=== PATIENT | female | born 1945 | race Caucasian/White ===

== ENCOUNTER → 2016-08-16 | Outpatient (CLI) | payer OTHER ==
[~2016-08-16] MED LIST: ALBUAER19 INH; ASCA500 PO; ATV/1 PO; CALCTAB5 PO; CHOL100027 PO; CYAN3INJ IM; DIPH25TA24 PO; HYDR-5688 PO; POLY150C12 PO; POTASSIUM CHLO PO; SIMV20TA2 PO; TRAM-10 PO; VENL150T33 PO; WARF5TAB90 PO
--- NOTE | 2016-08-17 07:56 | MAMMOGRAPHY REPORT ---
BILATERAL DIGITAL SCREENING MAMMOGRAM WITH CAD: 08/16/2016 CLINICAL HISTORY: Routine screening. Patient has no complaints. TECHNIQUE: Current study was also evaluated with a Computer Aided Detection (CAD) system. Bilatera l CC and MLO views were obtained. COMPARISON: Comparison is made to exams dated: 06/03/2015 mammogram, 01/30/2013 mammogram, 12/13/2009 m ammogram - [facility], 12/12/2006, and 02/16/2004 mammogram - [facility] enter. BREAST COMPOSITION: There are scattered areas of fibroglandular density in both breasts. FINDINGS: A 10 mm focal asymmetry is seen within the left inferior breast at approximately 6:00, for which spot compression tomosynthesis views and possible breast ultrasound are recommended for furth er evaluation. The remainder of both breasts are stable compared to prior exams, without suspicious masses, calcifi cations, or areas of architectural distortion noted. IMPRESSION: ACR BI-RADS CATEGORY 0: INCOMPLETE EVALUATION: NEED ADDITIONAL IMAGING EVALUATION Left breast focal asymmetry, for which additional imaging evaluation is recommended. The patient w ill be called to schedule an appointment. Approximately 10% of breast cancers are not detected with mammography. A negative mammographic repor t should not delay biopsy if a clinically suggestive mass is present. Sanjuana Christina M.D. /:08/16/2016 17:02:02 Single Corner Cutter: Liliane OLIVEIRA)([place]), [facility] letter sent: Addl Imaging 0 BI-RADS Code: ACR BI-RADS Category 0: Incomplete Evaluation: Need Additional Imaging Evaluation
== END | disposition home or self-care (01) ==
LOC: C.MAMM 13:51
PROVIDERS: ATTEND Family Medicine
DX: Z12.31 Encounter for screening mammogram for malignant neoplasm of breast (principal); N64.89 Other specified disorders of breast

== ENCOUNTER → 2016-08-23 | Outpatient (CLI) | payer OTHER ==
--- NOTE | 2016-08-23 12:48 | MAMMOGRAPHY REPORT ---
UNILATERAL LEFT DIGITAL DIAGNOSTIC MAMMOGRAM TOMOSYNTHESIS AND TARGETED LEFT ULTRASOUND: 08/23/2016 CLINICAL HISTORY: Callback from screening mammogram for left breast asymmetry. TECHNIQUE: Breast tomosynthesis in addition to standard 2D mammography was performed. Spot nichole torin left CC and MLO 2-D and tomosynthesis images were obtained. COMPARISON: Comparison is made to exams dated: 08/16/2016 mammogram, 06/03/2015 mammogram, 01/30/2013 m ammogram, 12/13/2009 mammogram - [facility], 12/12/2006, and 02/16/2004 mammogram - [facility]. BREAST COMPOSITION: There are scattered areas of fibroglandular density in the left breast. FINDINGS: The previously described focal asymmetry in the left 6:00 breast effaces to a baseline keira earance on the additional spot compression views, with appearance of this region similar to prior ex ams including the 2009 exam. No suspicious mass or architectural distortion is noted in this region on the additional views. Targeted ultrasound was performed of the left 6:00 breast in the region of the mammographic asymmetr y. No suspicious masses or other suspicious sonographic abnormality is evident. An oval circumscri bed isoechoic 4 x 6 mm mass is seen within the left breast at 6:00, 3 cm from the nipple, which on r eal-time imaging has the appearance of a normal fat lobule. IMPRESSION: ACR BI-RADS CATEGORY 2: BENIGN, TARGETED ULTRASOUND ACR BI-RADS CATEGORY 2: BENIGN The left breast asymmetry effaces to a baseline appearance on the additional views, without correspo nding suspicious sonographic abnormality evident. The asymmetry is benign and felt to represent nor mal fibroglandular tissue. There is no mammographic or targeted sonographic evidence of malignancy. A 1 year screening mammogram is recommended. The patient has been verbally notified of the results . Approximately 10% of breast cancers are not detected with mammography. A negative mammographic repor t should not delay biopsy if a clinically suggestive mass is present. Sanjuana Christina M.D. /:08/23/2016 11:36:25 Golf Ball Molder: Galina Garcia, [facility] letter sent: Normal 1/2 BI-RADS Code: ACR BI-RADS Category 2: Benign Ultrasound BI-RADS: ACR BI-RADS Category 2: Benign
== END | disposition home or self-care (01) ==
LOC: C.MAMM 11:02
PROVIDERS: ATTEND Family Medicine
DX: Z12.31 Encounter for screening mammogram for malignant neoplasm of breast (principal); N64.89 Other specified disorders of breast

== ENCOUNTER → 2017-12-18 | Outpatient (CLI) | payer OTHER ==
[~2017-12-18] MED LIST changes: -HYDR-5688 PO
--- NOTE | 2017-12-19 13:38 | MAMMOGRAPHY REPORT ---
BILATERAL DIGITAL SCREENING MAMMOGRAM TOMOSYNTHESIS WITH CAD: 12/18/2017 CLINICAL HISTORY: Routine screening. Patient has no complaints. TECHNIQUE: The study was acquired using full field digital technology and interpreted from soft copy. Breast tomosynthesis in addition to standard 2D mammography was performed. Current study was also ev aluated with a Computer Aided Detection (CAD) system. COMPARISON: Comparison is made to exams dated: 08/23/2016 mammogram, 08/16/2016 mammogram, 06/03/2015 ma mmogram, 01/30/2013 mammogram, 12/13/2009 mammogram - [facility], and 12/12/2006. BREAST COMPOSITION: There are scattered areas of fibroglandular density in both breasts. FINDINGS: There are possible areas of architectural distortion in the lateral, middle one third of th e right breast on the CC tomosynthesis slice 15/37, and in the anterior left breast along the posteri or nipple line on CC tomosynthesis slice 9/33, for which additional spot compression tomosynthesis vi ews and possible ultrasound are recommended for further characterization. No suspicious masses, asymmetries or suspicious calcifications are seen bilaterally. IMPRESSION: ACR BI-RADS CATEGORY 0: INCOMPLETE EVALUATION: NEED ADDITIONAL IMAGING EVALUATION The possible areas of architectural distortion in the lateral right breast and left breast along the posterior nipple line on the CC view need additional imaging evaluation. The patient will be called to schedule an appointment. Some breast cancers are not detected with mammography. A negative mammographic report should not lachelle y biopsy if a clinically suggestive mass is present. Kay Thomas M.D. ay/:12/18/2017 16:12:24 Materials Associate: RT Rasheed(Emmy)(M), [facility] letter sent: Addl Imaging 0 BI-RADS Code: ACR BI-RADS Category 0: Incomplete Evaluation: Need Additional Imaging Evaluation
== END | disposition home or self-care (01) ==
LOC: C.MAMM 13:40
PROVIDERS: ATTEND Family Medicine
DX: Z12.31 Encounter for screening mammogram for malignant neoplasm of breast (principal); N64.89 Other specified disorders of breast

== ENCOUNTER → 2018-01-04 | Outpatient (CLI) | payer OTHER ==
--- NOTE | 2018-01-04 14:31 | MAMMOGRAPHY REPORT ---
BILATERAL DIGITAL DIAGNOSTIC MAMMOGRAM TOMOSYNTHESIS AND TARGETED LEFT ULTRASOUND: 01/04/2018 CLINICAL HISTORY: Callback from screening mammogram for possible bilateral architectural distortion. TECHNIQUE: Breast tomosynthesis in addition to standard 2D mammography was performed. Spot compressi on bilateral CC 2D and tomosynthesis images were obtained. COMPARISON: Comparison is made to exams dated: 12/18/2017 mammogram, 08/23/2016 mammogram, 08/16/2016 amy mogram, 06/03/2015 mammogram, 08/23/2016 ultrasound, and 12/13/2009 mammogram - [facility]. BREAST COMPOSITION: There are scattered areas of fibroglandular density in both breasts. FINDINGS: The previously described possible area of architectural distortion seen within the right lateral chris st on the cc view does not persist on the additional spot compression views. Normal fibroglandular t issue is seen within this region, without evidence of a mass or other suspicious sonographic abnormal ity. Small nodular asymmetry in the right lateral breast on the cc view is stable compared to multip le prior exams including the 2012 exam. The previously described possible area of architectural distortion seen within the left anterior chris st on the cc view does not clearly persist on the additional views, however, there is dense tissue in this region and therefore ultrasound was performed for further evaluation. A lobulated asymmetry se en in the left breast on the cc view more posteriorly appears stable compared to multiple prior exams including the 2013 exam. Targeted ultrasound was performed of the left breast including 12:00, 6:00, and subareolar breast to evaluate the area of possible distortion. No suspicious masses or other suspicious sonographic abnor malities are evident. IMPRESSION: ACR BI-RADS CATEGORY 2: BENIGN, ULTRASOUND ACR BI-RADS CATEGORY 2: BENIGN No persistent architectural distortion seen within either breast on the additional spot compression v iews. Findings are benign and most compatible with normal fibroglandular tissue. There is no mammog raphic or sonographic evidence of malignancy. A 1 year screening mammogram is recommended.(01/05/2019 ) The patient has been verbally notified of the results. Some breast cancers are not detected with mammography. A negative mammographic report should not lachelle y biopsy if a clinically suggestive mass is present. Sanjuana Christina M.D. /:01/04/2018 12:25:42 Fabric Awning Repairer: RT Liyah(R)(M), [facility] letter sent: Normal 05/15 OVERALL STUDY BIRADS: 2 Benign
== END | disposition home or self-care (01) ==
LOC: C.MAMM 11:03
PROVIDERS: ATTEND Family Medicine
DX: R92.8 Other abnormal and inconclusive findings on diagnostic imaging of breast (principal)

== ENCOUNTER 2019-11-14 17:31 | Inpatient (IN) ==
[2019-11-14] MEDS ORDERED: SODIUM CHLORIDE 0.9% 250 ML IV PRN (17:54)
[2019-11-14] MEDS ORDERED: PANTOprazole 40 MG in SYRINGE 0 ML IV ONE (18:11)
--- NOTE | 2019-11-14 18:14 | Emergency Department Note ---
Impression & Plan Anemia, Acute GI bleeding, Heart murmur ED Provider Note NAME: TEDDY GODWIN AGE: 74 SEX: F : 1945 ARRIVES VIA: Walk-In INFORMANT: Patient, ED PROVIDER(S): Soren Mix DO CHIEF COMPLAINT: Edema HPI: The patient is a 74-year-old female who presented to the emergency department with her family member for an evaluation of lower extremity edema. The patient is noticed lower extremity edema over the last few months. Things have worsened over the last few weeks. She had a follow-up appointment with her primary preschool assistant today and was found to have a very low hemoglobin. She states her hemoglobin was around 5. She does have a history of chronic anemia and does receive iron infusions twice a year and is also received transfusions of blood in the past. She denies having any chest pain but does complain of dy spnea on exertion as well as generalized weakness with exertion. She denies having any black or bloody stools. She had no rectal exam prior to arrival. She has not seen her family doctor for these complaints. She denies having any recent falls or abdominal pain. She does complain of approximately 40 pound weight gain. The patient has a history of warfarin use because of a mechanical valve transplant. ROS: See above HPI for pertinent positives & negatives. A total of 10 systems reviewed and were otherwise negative. PAST MEDICAL HISTORY: See Below PAST SURGICAL HISTORY: See Below FAMILY HISTORY: See Below SOCIAL HISTORY: See Below HOME MEDICATIONS: See Below ALLERGIES: See Below VITALS: See Below PHYSICAL EXAMINATION: GENERAL: Patient is awake alert in no acute distress patient is resting comfortably and showing no signs of anxiety EYES: The conjunctivae are pale. The pupils are round and reactive. EARS, NOSE, MOUTH AND THROAT: The nose is without any evidence of any deformity. Mucous membranes are moist. NECK: The neck is nontender and supple. RESPIRATORY: Normal respiratory effort is noted there is no evidence of wheezing rhonchi or rales CARDIOVASCULAR: Regular rate and rhythm was noted to auscultation. Metallic click was noted to auscultation as well as a systolic murmur. GASTROINTESTINAL: The abdomen is soft. Abdomen is nontender. Brown stool was noted on rectal exam which was heme positive. MUSCULOSKELETAL/EXTREMITIES: There is no evidence of gross deformity full range of motion is noted in the hips and shoulders. SKIN: Skin was pale and dry. There is pedal edema bilaterally. NEUROLOGIC: Patient is awake alert and oriented x3. MEDICAL DECISION MAKING: The patient is a 74-year-old female who presented to the emergency department for an evaluation of lower extremity edema. The patient has been having symptoms for approximately 1 month. She is also noticed significant weight gai n. She went to see her primary preschool assistant for the symptoms and had outpatient laboratory studies done. She was sent to the emergency department because of a low hemoglobin. Rectal exam did reveal heme positive stool. It was not melanotic. The patient had type and cross for 2 units of blood. I discussed the patient's laboratory and radiographic studies with her. I also discussed her condition with her family member who presented to the emergency department with her. At this time the patient is receiving blood transfusion. The [facility] hospitalist group was notified about this patient's condition and they will evaluate the patient in the emergency department for further management and disposition. Triage Nursing notes reviewed. Prior medical records reviewed Vital Signs: reviewed and remarkable for low blood pressure Differential diagnosis: Infection, dehydration, metabolic abnormality, hypo/hyperglycemia, electrolyte disturbance, anemia, hypoxia, cardiac sources, intracerebral event, toxicologic, neurologic, as well as other pathologies. ER treatment provided: See below Diagnostics interpreted by me: ECG: EKG was obtained in the emergency department. My interpretation is normal sinus rhythm at 79 bpm. There is a right bundle branch block pattern noted. No PVCs were noted. This was compared to a tracing from November 03, 2018. Right bundle branch block pattern was noted on the previous tracing. Cardiac Monitoring: An order was placed for continuous cardiac monitoring. The monitor shows a rate of 85 with sinus rhythm. Laboratory studies: As stated above and show below. Imaging studies: See below Consultation(s): 2000: I discussed this case with Dr. Stuart. He is agreed to evaluate the patient in the emergency department for further management and disposition. ED COURSE: Procedures: none Critical Care: I have personally spent greater than 45 minutes of critical care time in the direct management of this patient. This includes bedside care, interpretation of diagnostic studies, and testing, discussion with consultants, patient, and family members, and other required patient management activities. This 45 minutes is in excess of all separately billable procedures. Past Med/Surg History Medical History Anemia Anxiety Asthma ENVIRONMENTALLY INDUCED/NO INHALER USE RECENTLY Depression Hearing deficit Hyperlipidemia Hypertension Migraine Osteoarthritis Ovarian cyst Spinal stenosis Stomach ulcer "HILL [place] 2 PROCEDURE" White coat syndrome with hypertension Surgical History History of adenoidectomy History of bilateral tubal ligation History of bowel resection History of cardiac cath History of cataract surgery History of colonoscopy History of esophagogastroduodenoscopy (EGD) History of heart valve replacement AORTIC VALVE REPLACEMENT [facility] History of tonsillectomy History of tooth extraction History of total abdominal hysterectomy and bilateral salpingo-oophorectomy Family History Mother Family history of diabetes mellitus Social History Preferred Language: German Communication Ability: Effective Visual Impairment: No Limitations Hearing Ability: Hard of Hearing Mailroom Coordinator Required: No Beliefs That Will Affect Care: None Current Living Situation: Alone Other Information That Helps Us Care for You: No Feels Safe at Home: Yes Safety Concerns: Feels Safe At This Time Smoking Status: Former smoker Second Hand Exposure: No ; Hx Alcohol Use: Yes Hx Substance Use: No Allergies Allergies Allergy/AdvReac Type Severity Reaction Status Date / Time heparin Allergy Severe developed Verified 11/14/19 18:32 antibody to heparin ferrous sulfate AdvReac Intermediate Gastrointestinal Verified 11/14/19 18:37 Upset adhesive tape AdvReac Mild skin Verified 11/14/19 18:32 sensitive Home Meds Home Medications Medication Instructions Recorded Confirmed albuterol sulfate 1 puff INHALATION Q6H PRN 02/01/18 11/14/19 ascorbic acid (vitamin C) [Vitamin 500 mg PO QAM 02/01/18 11/14/19 C] bupropion HCl [Wellbutrin XL] 150 mg PO QAM 02/01/18 11/14/19 diphenhydramine HCl [Benadryl] 25 mg PO HS PRN 02/01/18 11/14/19 lorazepam 1 mg PO HS 02/01/18 11/14/19 simvastatin 20 mg PO HS 02/01/18 11/14/19 tramadol 50 mg PO Q6H PRN 02/01/18 11/14/19 venlafaxine [Effexor XR] 150 mg PO QAM 02/01/18 11/14/19 cholecalciferol (vitamin D3) 0 unit PO QAM 10/31/18 11/14/19 [Vitamin D3] warfarin 1 mg PO WK 10/31/18 11/14/19 warfarin 3 mg PO [id number] 10/31/18 11/14/19 calcium carbonate [Calcium 600] 600 mg PO DAILY 11/14/19 11/14/19 cyanocobalamin (vitamin B-12) 1,000 mcg IM .[id number] 11/14/19 11/14/19 Results & Data (ED) Vital Signs Vital Signs - 24 hr 11/14/19 17:38 11/14/19 18:30 11/14/19 18:33 Temperature 36.8 C Temperature Source Oral Pulse Rate 89 83 Pulse Rate from SpO2 Sensor 85 Respiratory Rate 18 22 Blood Pressure 116/47 L 146/51 H Blood Pressure Mean 70 67 Pulse Oximetry 98 100 100 Oxygen Delivery Method Room Air Room Air Sepsis Recent Fever Within 48 Hours No Sepsis New/Unexplained Change in Mental Status No Sepsis Action Taken by Nursing No Action Required 11/14/19 19:15 11/14/19 19:30 11/14/19 20:30 Temperature Temperature Source Pulse Rate 81 79 80 Pulse Rate from SpO2 Sensor 81 79 79 Respiratory Rate 19 15 21 Blood Pressure 114/44 L 115/58 L 116/43 L Blood Pressure Mean 64 69 67 Pulse Oximetry 97 97 95 Oxygen Delivery Method Room Air Room Air Room Air Sepsis Recent Fever Within 48 Hours Sepsis New/Unexplained Change in Mental Status Sepsis Action Taken by Group Home Medications Current Medication List: was personally reviewed by me Laboratory Data Attestation: I reviewed the patient's lab results. Result diagrams: 11/14/19 18:05 11/14/19 18:05 Lab Results 11/14/19 11/14/19 11/14/19 Range/Units 18:05 18:05 18:05 WBC 11.44 H (4.8-10.8) K/uL RBC 2.48 L (4.2-5.4) M/uL Hgb 5.6 L* (12.0-16.0) g/dL Hct 20.4 L* (37-47) % MCV 82.3 (80-100) fL MCH 22.6 L (25-34) pg MCHC 27.5 L (32-36) g/dL RDW Std Deviation 63.5 H (36.4-46.3) fL RDW Coeff of Kristy 22.8 H (11.5-14.5) % Plt Count 391 (130-400) K/uL MPV 10.1 (7.4-10.4) fL Immature Gran % (Auto) 0.2 % Neut % (Auto) 69.8 % Lymph % (Auto) 13.1 % [place] % (Auto) 16.0 % Eos % (Auto) 0.7 % Baso % (Auto) 0.2 % Neut # (Auto) 7.99 H (1.4-6.5) K/uL Lymph # (Auto) 1.50 (1.2-3.4) K/uL [place] # (Auto) 1.83 H (0.11-0.59) K/uL Eos # (Auto) 0.08 (0-0.5) K/uL Baso # (Auto) 0.02 (0-0.2) K/uL Immature Gran # (Auto) 0.02 (0.00-0.02) K/uL Hypochromasia Present Anisocytosis Present PT 23.4 H (9.0-12.0) Seconds INR 2.3 H (0.9-1.1) APTT 40.6 H (21.0-31.0) Seconds PTT Ratio 1.5 Sodium 138 (136-145) mmol/L Potassium 3.4 L (3.5-5.1) mmol/L Chloride 110 H (98-107) mmol/L Carbon Dioxide 24 (21-32) mmol/L Anion Gap 4.0 (3-11) BUN 17 (7-18) mg/dl Creatinine 1.13 (0.6-1.2) mg/dl Est Cr Clr Drug Dosing 40.8 ml/min Est GFR ( Amer) 55.1 Est GFR (Non-Af Amer) 47.5 BUN/Creatinine Ratio 14.9 (10-20) Glucose 92 (70-99) mg/dl Calcium 8.4 L (8.5-10.1) mg/dl Total Bilirubin 0.3 (0.2-1) mg/dl AST 18 (15-37) U/L ALT 158 H (12-78) U/L Alkaline Phosphatase 107 (45-117) U/L Troponin I < 0.015 (0-0.045) ng/ml Total Protein 6.6 (6.4-8.2) gm/dl Albumin 3.0 L (3.4-5.0) gm/dl Globulin 3.6 (2.5-4.0) gm/dl Albumin/Globulin Ratio 0.8 L (0.9-2) Lipase 167 (73-393) U/L Blood Type Antibody Screen Antibody Identification Crossmatch 11/14/19 Range/Units 18:05 WBC (4.8-10.8) K/uL RBC (4.2-5.4) M/uL Hgb (12.0-16.0) g/dL Hct (37-47) % MCV (80-100) fL MCH (25-34) pg MCHC (32-36) g/dL RDW Std Deviation (36.4-46.3) fL RDW Coeff of Kristy (11.5-14.5) % Plt Count (130-400) K/uL MPV (7.4-10.4) fL Immature Gran % (Auto) % Neut % (Auto) % Lymph % (Auto) % [place] % (Auto) % Eos % (Auto) % Baso % (Auto) % Neut # (Auto) (1.4-6.5) K/uL Lymph # (Auto) (1.2-3.4) K/uL [place] # (Auto) (0.11-0.59) K/uL Eos # (Auto) (0-0.5) K/uL Baso # (Auto) (0-0.2) K/uL Immature Gran # (Auto) (0.00-0.02) K/uL Hypochromasia Anisocytosis PT (9.0-12.0) Seconds INR (0.9-1.1) APTT (21.0-31.0) Seconds PTT Ratio Sodium (136-145) mmol/L Potassium (3.5-5.1) mmol/L Chloride (98-107) mmol/L Carbon Dioxide (21-32) mmol/L Anion Gap (3-11) BUN (7-18) mg/dl Creatinine (0.6-1.2) mg/dl Est Cr Clr Drug Dosing ml/min Est GFR ( Amer) Est GFR (Non-Af Amer) BUN/Creatinine Ratio (10-20) Glucose (70-99) mg/dl Calcium (8.5-10.1) mg/dl Total Bilirubin (0.2-1) mg/dl AST (15-37) U/L ALT (12-78) U/L Alkaline Phosphatase (45-117) U/L Troponin I (0-0.045) ng/ml Total Protein (6.4-8.2) gm/dl Albumin (3.4-5.0) gm/dl Globulin (2.5-4.0) gm/dl Albumin/Globulin Ratio (0.9-2) Lipase (73-393) U/L Blood Type B Negative Antibody Screen POSITIVE A Antibody Identification Anti-D Crossmatch See Detail Administered Medications Pantoprazole Sodium 40 mg/ (Dextrose) 100 mls @ 20 mls/hr IV Q5H ANTONINA Stop: 12/14/19 22:30 Last Admin: 11/14/19 23:14 Dose: 8 mg/hr, 20 mls/hr Documented by: [id number] Simvastatin (Zocor) 20 mg PO HS ANTONINA Stop: 12/14/19 22:30 Last Admin: 11/14/19 23:13 Dose: 20 mg Documented by: [id number] Discontinued Medications Pantoprazole Sodium 40 mg/ (Syringe) 10 mls @ 5 mls/min IV NOW ONE Stop: 11/14/19 18:12 Last Admin: 11/14/19 19:12 Dose: 5 mls/min Documented by: [id number] Phytonadione 10 mg/ Sodium (Chloride) 51 mls @ 102 mls/hr IV ONE STA Stop: 11/14/19 21:40 Last Admin: 11/14/19 21:41 Dose: Not Given Documented by: [id number] Imaging Data Radiologist's Impression: SINGLE VIEW CHEST CLINICAL HISTORY: Atypical chest pain. FINDINGS: An AP, portable, upright chest radiograph is compared to study dated 10/31/2018. Correlation is made with chest CT dated 07/21/2009. The examination is degraded by portable technique and patient rotation. The patient is status post midline sternotomy and cardiac valve surgery. The heart is enlarged noting atherosclerotic calcification of the thoracic aorta. The pulmonary vasculature is noncongested. Chronic interstitial thickening is similar to previous. There is mild bibasilar scarring/atelectasis. No airspace consolidation or pleural effusion is identified. No pneumothorax is seen. The skeletal structures are osteopenic. The bony thorax is grossly intact. Surgical clips project over the right upper chest. Suture material and postoperative change is noted in the u pper abdomen. IMPRESSION: Cardiomegaly with no acute cardiopulmonary abnormality. ACT 112: Negative or not required by law. Electronically signed by: Olu Killian M.D. 11/14/2019 6:33 PM Dictated: 11/14/19 183 Transcribed: 11/14/19 183 Blood Pressure Blood Pressure Findings: Low blood pressure Discharge Plan Visit Data *Final* Discharge Date/Time: 11/14/19 22:10 Chief Complaint: Edema To Extremity Stated Complaint: ANEMIA,LOWER EXTREMITY EDEMA ED Provider: Soren Mix Discharge Problem: Anemia, Acute GI bleeding, Heart murmur Patient Disposition: Admitted As Inpatient Condition: Good Discharge Instructions Interventions: ED Discharge Assessment Last Done: 11/14/19 22:10 Discharge Problem: Anemia Qualifiers: Anemia type: unspecified type Qualified Code(s): D64.9 - Anemia, unspecified
[2019-11-14 18:25] LABS: INR 2.3 (0.9-1.1); Partial Thromboplastin Ratio 1.5; Partial Thromboplastin Time 40.6 Seconds (21.0-31.0); Prothrombin Time 23.4 Seconds (9.0-12.0)
[2019-11-14 18:31] LABS: Alanine Aminotransferase 158 U/L (12-78); Aspartate Aminotransferase 18 U/L (15-37); BUN Creatinine Ratio 14.9 (10-20); Blood Urea Nitrogen 17 mg/dl (7-18); Calcium 8.4 mg/dl (8.5-10.1); Carbon Dioxide 24 mmol/L (21-32); Chloride 110 mmol/L (98-107); Creatinine Clr Calc Pharmacy 40.8 ml/min; Est GFR (African American) 55.1; Est GFR (Non-African American) 47.5; Glucose 92 mg/dl (70-99); Lipase 167 U/L (73-393); Potassium 3.4 mmol/L (3.5-5.1); Sodium 138 mmol/L (136-145)
--- NOTE | 2019-11-14 18:34 | XRay Report ---
SINGLE VIEW CHEST CLINICAL HISTORY: Atypical chest pain. FINDINGS: An AP, portable, upright chest radiograph is compared to study dated 10/31/2018. Correlation is made with chest CT dated 07/21/2009. The examination is degraded by portable technique and patient rotation. The patient is status post midline sternotomy and cardiac valve surgery. The heart is enla rged noting atherosclerotic calcification of the thoracic aorta. The pulmonary vasculature is noncong ested. Chronic interstitial thickening is similar to previous. There is mild bibasilar scarring/atele ctasis. No airspace consolidation or pleural effusion is identified. No pneumothorax is seen. The ske letal structures are osteopenic. The bony thorax is grossly intact. Surgical clips project over the r ight upper chest. Suture material and postoperative change is noted in the upper abdomen. IMPRESSION: Cardiomegaly with no acute cardiopulmonary abnormality. ACT 112: Negative or not required by law. Electronically signed by: Olu Killian M.D. 11/14/2019 6:33 PM
[2019-11-14 18:36] LABS: Albumin Globulin Ratio 0.8 (0.9-2); Alkaline Phosphatase 107 U/L (45-117); Bilirubin,Total 0.3 mg/dl (0.2-1); Globulin 3.6 gm/dl (2.5-4.0); Total Protein 6.6 gm/dl (6.4-8.2); Troponin I < 0.015 ng/ml (0-0.045)
[2019-11-14 18:43] LABS: Anisocytosis Present; Basophils # (auto) 0.02 K/uL (0-0.2); Basophils % (auto) 0.2 %; Eosinophils # (auto) 0.08 K/uL (0-0.5); Eosinophils % (auto) 0.7 %; Hematocrit (blood only) 20.4 % (37-47); Hemoglobin 5.6 g/dL (12.0-16.0); Hypochromasia Present; Immature Granulocytes # (auto) 0.02 K/uL (0.00-0.02); Immature Granulocytes % (auto) 0.2 %; Lymphocytes % (auto) 13.1 %; Mean Corpuscular Hemoglobin 22.6 pg (25-34); Mean Corpuscular Hgb Conc 27.5 g/dL (32-36); Mean Corpuscular Volume 82.3 fL (80-100); Mean Platelet Volume 10.1 fL (7.4-10.4); Monocytes # (auto) 1.83 K/uL (0.11-0.59); Neutrophils # (auto) 7.99 K/uL (1.4-6.5); Neutrophils % (auto) 69.8 %; Platelet Count 391 K/uL (130-400); RDW Coefficient of Variation 22.8 % (11.5-14.5); RDW Standard Deviation 63.5 fL (36.4-46.3); Red Blood Count 2.48 M/uL (4.2-5.4); White Blood Count 11.44 K/uL (4.8-10.8)
[2019-11-14] MEDS ORDERED: PHYTONADIONE 10 MG in SODIUM CHLORIDE 0.9% 50 ML IV STA (21:11)
--- NOTE | 2019-11-14 21:44 | History & Physical Report ---
Date of Service November 14, 2019 Assessment & Plan (1) Acute GI bleedin. Acute GI bleed Rectal exam in ED showing wesley red blood Hemoglobin 5.6 on admission, MCV 82, platelets 391 2 units of PRBC ordered for transfusion Follow-up CBC in the morning with goal of hemoglobin greater than 7 GI consulted query EGD or C scope Placed on Protonix drip Warfarin held 2. Supratherapeutic INR With history of mechanical aortic valve replacement on warfarin INR of 2.3 on admission, APTT 40.6 Follow a.m. INR; consider vitamin K for INR reversal Cardiology consulted; Query anticoagulation goals/adjustments going forward. 3. Hypokalemia Repleted with 20 mEq potassium p.o. BMP, mag, phosphorus ordered in the a.m. DVT prophylaxis: Contraindicated FEN/GI: N.p.o., Protonix drip Dispo: PCU CODE STATUS: Full code (2) Anticoagulated on Coumadin: (3) PUD (peptic ulcer disease): (4) H/O Billroth II operation: History of Present Illness 74 yo F with Hx multiple transfusions, PUD, Billroth II operation, mechanical aortic valve on warfarin who presents to the emergency department for increasing fatigue and general weakness. She states that she went to her primary care physician's office earlier today with a complaint of lower extremity swelling had some blood work done and was told that her hemoglobin was 5.2 and that she needed to come to the emergency department. She denies any nausea or vomiting, has had no episodes of melanotic stool or bright red blood per rectum or hematemesis. She states that she knew her hemoglobin was dropping because whenever it does she starts to crave ice and she has been craving it lately. She states that she gets an IV iron infusion every 6 months and has not had a blood transfusion in 3 to 4 years. She otherwise has no complaints Primary Care Provider: Chidi Callahan Allergies Allergy/AdvReac Type Severity Reaction Status Date / Time heparin Allergy Severe developed Verified 11/14/19 18:32 antibody to heparin ferrous sulfate AdvReac Intermediate Gastrointestinal Verified 11/14/19 18:37 Upset adhesive tape AdvReac Mild skin Verified 11/14/19 18:32 sensitive Home Medications Home Medications Medication Instructions Recorded Confirmed Type albuterol sulfate 1 puff INHALATION Q6H PRN 02/01/18 11/14/19 History ascorbic acid (vitamin C) [Vitamin 500 mg PO QAM 02/01/18 11/14/19 History C] bupropion HCl [Wellbutrin XL] 150 mg PO QAM 02/01/18 11/14/19 History diphenhydramine HCl [Benadryl] 25 mg PO HS PRN 02/01/18 11/14/19 History lorazepam 1 mg PO HS 02/01/18 11/14/19 History simvastatin 20 mg PO HS 02/01/18 11/14/19 History tramadol 50 mg PO Q6H PRN 02/01/18 11/14/19 History venlafaxine [Effexor XR] 150 mg PO QAM 02/01/18 11/14/19 History cholecalciferol (vitamin D3) 0 unit PO QAM 10/31/18 11/14/19 History [Vitamin D3] warfarin 1 mg PO WK 10/31/18 11/14/19 History warfarin 3 mg PO 6XWK 10/31/18 11/14/19 History calcium carbonate [Calcium 600] 600 mg PO DAILY 11/14/19 11/14/19 History cyanocobalamin (vitamin B-12) 1,000 mcg IM .[id number] 11/14/19 11/14/19 History Past Med/Surg History Medical History Anemia (Acute) Anxiety Asthma ENVIRONMENTALLY INDUCED/NO INHALER USE RECENTLY Depression Hearing deficit Hyperlipidemia Hypertension Migraine Osteoarthritis Ovarian cyst Spinal stenosis Stomach ulcer "[place] 2 PROCEDURE" White coat syndrome with hypertension Surgical History History of adenoidectomy History of bilateral tubal ligation History of bowel resection History of cardiac cath History of cataract surgery History of colonoscopy History of esophagogastroduodenoscopy (EGD) History of heart valve replacement AORTIC VALVE REPLACEMENT [facility] History of tonsillectomy History of tooth extraction History of total abdominal hysterectomy and bilateral salpingo-oophorectomy Family History Mother Family history of diabetes mellitus Social History Preferred Language: Divehi Communication Ability: Effective Visual Impairment: No Limitations Hearing Ability: Hard of Hearing Yard Coordinator Required: No Beliefs That Will Affect Care: None Current Living Situation: Alone Feels Safe at Home: Yes Smoking Status: Former smoker Second Hand Exposure: No ; Hx Alcohol Use: Yes Hx Substance Use: No Review of Systems Constitutional: + fatigue; no fever, no chills and no body aches Respiratory: no cough and no dyspnea Cardiovascular: + edema; no chest pain, no chest pain with activity, no dyspnea, no dyspnea on exertion, no palpitations, no lightheadedness and no syncope Gastrointestinal: no abdominal pain, no nausea, no vomiting, no constipation and no diarrhea/loose stools Genitourinary: no dysuria Physical Exam Constitutional: cooperative; no acute distress and not ill appearing Neck: normal visual inspection Respiratory: normal respiratory effort and able to speak in complete sentences; no respiratory distress, no labored breathing, no retractions, no cough and no audible wheezes Auscultation: lungs clear to auscultation bilaterally; no crackles, no rales, no rhonchi and no wheezes Cardiovascular: Rate/Rhythm: regular rate and regular rhythm Heart Sounds: normal S1, normal S2 and + murmur (mechanical valve murmur at upper sternal border); no gallop and no cardiac rub Vessels: posterior tibial pulses present Extremities: + pedal edema and + edema (nonpitting 1+ BL to the knees) Gastrointestinal (Abdomen): Inspection/Auscultation: abdomen normal to inspection and normal bowel sounds; abdomen not distended Percussion/Palpation: abdomen soft; abdomen nontender, no guarding, abdomen not rigid and no abdominal mass Results & Data Results & Data ([facility]) Vital Signs (Past 12 Hours) Vital Signs Temp Pulse Resp BP Pulse Ox 11/14/19 21:30 81 21 112/42 L 100 11/14/19 21:29 36.9 C 81 17 114/50 L 100 11/14/19 21:16 81 19 116/40 L 100 11/14/19 20:30 80 21 116/43 L 95 11/14/19 19:30 79 15 115/58 L 97 11/14/19 19:15 81 19 114/44 L 97 11/14/19 18:33 100 11/14/19 18:30 83 22 146/51 H 100 11/14/19 17:38 36.8 C 89 18 116/47 L 98 Laboratory Results WBC 11.44 K/uL (4.8-10.8) H 11/14/19 18:05 RBC 2.48 M/uL (4.2-5.4) L 11/14/19 18:05 Hgb 5.6 g/dL (12.0-16.0) L* 11/14/19 18:05 Hct 20.4 % (37-47) L* 11/14/19 18:05 MCV 82.3 fL (80-100) 11/14/19 18:05 MCH 22.6 pg (25-34) L 11/14/19 18:05 MCHC 27.5 g/dL (32-36) L 11/14/19 18:05 RDW Std Deviation 63.5 fL (36.4-46.3) H 11/14/19 18:05 RDW Coeff of Kristy 22.8 % (11.5-14.5) H 11/14/19 18:05 Plt Count 391 K/uL (130-400) 11/14/19 18:05 MPV 10.1 fL (7.4-10.4) 11/14/19 18:05 Immature Gran % (Auto) 0.2 % 11/14/19 18:05 Neut % (Auto) 69.8 % 11/14/19 18:05 Lymph % (Auto) 13.1 % 11/14/19 18:05 [place] % (Auto) 16.0 % 11/14/19 18:05 Eos % (Auto) 0.7 % 11/14/19 18:05 Baso % (Auto) 0.2 % 11/14/19 18:05 Neut # (Auto) 7.99 K/uL (1.4-6.5) H 11/14/19 18:05 Lymph # (Auto) 1.50 K/uL (1.2-3.4) 11/14/19 18:05 [place] # (Auto) 1.83 K/uL (0.11-0.59) H 11/14/19 18:05 Eos # (Auto) 0.08 K/uL (0-0.5) 11/14/19 18:05 Baso # (Auto) 0.02 K/uL (0-0.2) 11/14/19 18:05 Immature Gran # (Auto) 0.02 K/uL (0.00-0.02) 11/14/19 18:05 Hypochromasia Present 11/14/19 18:05 Anisocytosis Present 11/14/19 18:05 PT 23.4 Seconds (9.0-12.0) H 11/14/19 18:05 INR 2.3 (0.9-1.1) H 11/14/19 18:05 APTT 40.6 Seconds (21.0-31.0) H 11/14/19 18:05 PTT Ratio 1.5 11/14/19 18:05 Sodium 138 mmol/L (136-145) 11/14/19 18:05 Potassium 3.4 mmol/L (3.5-5.1) L 11/14/19 18:05 Chloride 110 mmol/L (98-107) H 11/14/19 18:05 Carbon Dioxide 24 mmol/L (21-32) 11/14/19 18:05 Anion Gap 4.0 (3-11) 11/14/19 18:05 BUN 17 mg/dl (7-18) 11/14/19 18:05 Creatinine 1.13 mg/dl (0.6-1.2) 11/14/19 18:05 Est Cr Clr Drug Dosing 40.8 ml/min 11/14/19 18:05 Est GFR ( Amer) 55.1 11/14/19 18:05 Est GFR (Non-Af Amer) 47.5 11/14/19 18:05 BUN/Creatinine Ratio 14.9 (10-20) 11/14/19 18:05 Glucose 92 mg/dl (70-99) 11/14/19 18:05 Calcium 8.4 mg/dl (8.5-10.1) L 11/14/19 18:05 Total Bilirubin 0.3 mg/dl (0.2-1) 11/14/19 18:05 AST 18 U/L (15-37) 11/14/19 18:05 ALT 158 U/L (12-78) H 11/14/19 18:05 Alkaline Phosphatase 107 U/L (45-117) 11/14/19 18:05 Troponin I < 0.015 ng/ml (0-0.045) 11/14/19 18:05 Total Protein 6.6 gm/dl (6.4-8.2) 11/14/19 18:05 Albumin 3.0 gm/dl (3.4-5.0) L 11/14/19 18:05 Globulin 3.6 gm/dl (2.5-4.0) 11/14/19 18:05 Albumin/Globulin Ratio 0.8 (0.9-2) L 11/14/19 18:05 Lipase 167 U/L (73-393) 11/14/19 18:05 Blood Type B Negative 11/14/19 18:05 Antibody Screen POSITIVE A 11/14/19 18:05 Antibody Identification Anti-D 11/14/19 18: Crossmatch See Detail 11/14/19 18:05 Code Status & VTE Plan VTE Prophylaxis Plan VTE Prophylaxis will be ordered: No Supervising Physician Co-Signing Physician Notes Attending addendum: I have physically seen this patient, have supervised the medical residents activities, and agree with the H&P unless as otherwise noted. Assessment and Plan: GI bleed/symptomatic anemia- NPO Protonix drip Hemoglobin 5.6 upon admission, to receive 2 units PRBCs from the ED. H&H every 6 hours, and further transfusions as needed. Hold warfarin. Consult gastroenterology Mechanical aortic valve replacement on chronic warfarin- INR 2.3 upon admission Difficult call to reverse INR related to GI bleeding and the possible precipitation of a stroke on a subtherapeutic INR. We will consult cardiology for their opinion. If there is progressive bleeding tonight, the patient will be given vitamin K IV. Hypokalemia/dehydration- NSS + KCl 20 mEq at 80 mils per hour. Repeat laboratories in a.m. Remaining orders and notations as noted Resident Activity Tracking Resident Involvement: Resident Care Provided Care Provided: Adult [facility] Medicine
[2019-11-14] MEDS ORDERED: ALUMINUM/MAGNESIUM SUSP 30 ML UDC PO PRN (22:31)
[2019-11-14] MEDS ORDERED: MoRPHine SULFATE 2 MG/ML CARP IV PRN (22:31)
[2019-11-14] MEDS ORDERED: ONDANSETRON INJ 2 MG/ML 2 ML VIAL IV PRN (22:31)
[2019-11-14] MEDS ORDERED: ACETAMINOPHEN 325 MG TAB PO PRN (22:31)
[2019-11-14] MEDS ORDERED: POLYETHYLENE (MIRALAX) 17 GM PACK PO PRN (22:31)
[2019-11-14] MEDS ORDERED: MAGNESIUM HYDROXIDE SUSP 30 ML UDC PO PRN (22:31)
[2019-11-14] MEDS ORDERED: NITROGLYCERIN SL 0.4 MG/TAB TAB SL PRN (22:31)
[2019-11-14] MEDS ORDERED: SIMVASTATIN 20 MG TAB PO SCH (22:31)
[2019-11-14] MEDS ORDERED: TRAMADOL HCL 50 MG TABLET PO PRN (22:31)
[2019-11-14] MEDS ORDERED: ALBUTEROL HFA 8 GM INHALER INH PRN (23:04)
[2019-11-14] MEDS: PANTOprazole 40 MG in DEXTROSE 5% 100 ML IV SCH (23:14)
[2019-11-15] MEDS ORDERED: SODIUM CHLORIDE 0.9% 250 ML IV PRN ×3 (00:28→06:58)
[2019-11-15] MEDS: PANTOprazole 40 MG in DEXTROSE 5% 100 ML IV SCH ×3 (03:49→14:46)
[2019-11-15] MEDS ORDERED: POTASSIUM PHOS 3 MMOL/1 ML INFUSION IV STA (04:35)
[2019-11-15] MEDS ORDERED: POTASSIUM PHOSPHATE 9 MMOL in SODIUM CHLORIDE 0.9% 250 ML IV ONE (04:45)
[2019-11-15 04:59] LABS: INR 2.4 (0.9-1.1); Prothrombin Time 24.1 Seconds (9.0-12.0)
[2019-11-15 05:07] LABS: Hematocrit (blood only) 26.5 % (37-47); Hemoglobin 8.1 g/dL (12.0-16.0); Mean Corpuscular Hgb Conc 30.6 g/dL (32-36); Mean Corpuscular Volume 84.9 fL (80-100); Mean Platelet Volume 9.7 fL (7.4-10.4); Platelet Count 244 K/uL (130-400); RDW Coefficient of Variation 20.2 % (11.5-14.5); RDW Standard Deviation 60.6 fL (36.4-46.3); Red Blood Count 3.12 M/uL (4.2-5.4); White Blood Count 12.21 K/uL (4.8-10.8)
[2019-11-15 05:11] LABS: Calcium 8.2 mg/dl (8.5-10.1); Creatinine Clr Calc Pharmacy 38.1 ml/min; Est GFR (African American) 63.1; Est GFR (Non-African American) 54.4; Phosphorus 3.5 mg/dl (2.5-4.9); Potassium 3.9 mmol/L (3.5-5.1)
[2019-11-15 05:15] LABS: Anisocytosis Present; Basophils # (auto) 0.03 K/uL (0-0.2); Basophils % (auto) 0.2 %; Eosinophils # (auto) 0.04 K/uL (0-0.5); Eosinophils % (auto) 0.3 %; Hypochromasia Present; Immature Granulocytes # (auto) 0.03 K/uL (0.00-0.02); Immature Granulocytes % (auto) 0.2 %; Lymphocytes # (auto) 0.65 K/uL (1.2-3.4); Lymphocytes % (auto) 5.3 %; Monocytes # (auto) 1.57 K/uL (0.11-0.59); Monocytes % (auto) 12.9 %; Neutrophils # (auto) 9.89 K/uL (1.4-6.5); Neutrophils % (auto) 81.1 %
[2019-11-15] MEDS ORDERED: DIGOXIN 250 MCG in SYRINGE 9 ML IV STA (06:56)
[2019-11-15] MEDS ORDERED: POTASSIUM CHLORIDE 20 MEQ TABCR PO ONE (07:00)
[2019-11-15] MEDS ORDERED: ALBUMIN 25% 50 ML IV SCH (07:15)
[2019-11-15] MEDS ORDERED: ASCORBIC ACID 500 MG TAB PO SCH (09:00)
[2019-11-15] MEDS ORDERED: VENLAFAXINE HCL XR 150 MG CAPXR PO SCH (09:00)
[2019-11-15] MEDS ORDERED: BuPROPion XL 150 MG TABCR PO SCH (09:00)
[2019-11-15] MEDS ORDERED: CALCIUM CARBONATE 1250MG TAB PO SCH (09:00)
[2019-11-15] MEDS ORDERED: CHOLECALCIFEROL 1,000 UNITS 25 MCG TAB PO SCH (09:00)
[2019-11-15] MEDS ORDERED: METOPROLOL TARTRATE 1 MG/ML VIAL IV PRN (09:02)
--- NOTE | 2019-11-15 12:09 | Hospitalist Progress Note ---
Date of Service November 15, 2019 Assessment & Plan (1) Acute GI bleeding: Laury Pérez is a 74 yo F with h/o multiple transfusions, PUD, Billroth II operation, mechanical aortic valve on warfarin who presents to the emergency department for increasing fatigue and general weakness. Acute GI bleed: - Rectal exam in ED showing wesley red blood - Hemoglobin 5.6 on admission, MCV 82, platelets 391 - overnight received 3 Units of PRBCs, and 2 Units of FFP - GI consulted: appreciate recommendations - continue Protonix - IV fluids NSS @80mls/hr - Warfarin held in setting of acute bleed Mechanical Aortic Valve: - With history of mechanical aortic valve replacement on warfarin - INR of 2.3 on admission, APTT 40.6 - Cardiology consulted: appreciate anti-coagulation recommendations Diet: N.p.o. DVT prophylaxis: Contraindicated in the setting of acute bleed with supratherapeutic INR CODE STATUS: Full code (2) Anticoagulated on Coumadin: (3) PUD (peptic ulcer disease): (4) H/O Billroth II operation: Admission and Anticipated Discharge Date Admission Date: November 14, 2019 Subjective Overnight had several runs of A. fib noted on telemetry with HR runs up to 160s; no abdominal pain, no bleeding episodes, feels like her edema has significantly improved at this time. Review of Systems Review of Systems: All systems reviewed & are unremarkable except as noted in Subjective Physical Exam Constitutional: WD/WN, vitals as above Eyes: PERRL, conjunctivae normal, anicteric sclerae Respiratory: normal respiratory effort, lungs clear to auscultation Cardiovascular: Rate/Rhythm: regular rate and regular rhythm Heart Sounds: + click and + murmur (systolic loudest over ARELIS) Vessels: normal peripheral pulses; no JVD Extremities: no edema Gastrointestinal (Abdomen): normal bowel sounds, soft, nontender, no hepatosplenomegaly Musculoskeletal: no cyanosis or clubbing, extremities motor strength 5/5 Skin: no rashes, warm and dry Neurologic: patellar DTR's 2+ bilat, sensation intact Psychiatric: A+Ox3, euthymic affect Results & Data Results & Data ([facility]) Vital Signs (Past 12 Hours) Vital Signs Temp Pulse Pulse Resp BP BP Pulse Ox 11/15/19 11:53 37.0 C 72 18 116/53 L 95 11/15/19 11:22 37 C 75 18 118/69 97 11/15/19 10:28 36.8 C 73 16 111/48 L 96 11/15/19 10:26 37.1 C 79 18 111/51 L 96 11/15/19 10:12 37 C 77 18 114/62 95 11/15/19 09:42 36.3 C L 74 18 117/52 L 95 11/15/19 09:19 37.1 C 74 20 121/70 95 11/15/19 08:59 36.8 C 78 18 119/55 L 96 11/15/19 08:00 36.8 C 78 18 114/47 L 96 11/15/19 07:49 37 C 79 18 115/62 95 11/15/19 07:34 36.3 C L 77 18 98/47 L 97 11/15/19 07:18 37.3 C 83 16 104/57 L 97 11/15/19 05:27 37.9 C H 85 17 114/52 L 98 11/15/19 05:23 85 11/15/19 04:17 156 H 18 109/71 93 11/15/19 03:07 37.2 C 77 16 109/68 96 11/15/19 02:20 37.1 C 77 19 110/67 97 11/15/19 01:50 36.9 C 75 20 111/68 97 11/15/19 01:20 37.2 C 78 19 116/68 96 11/15/19 01:04 37.0 C 72 18 123/63 95 11/15/19 00:47 37.1 C 72 18 104/64 95 11/15/19 00:09 37.0 C 72 18 121/58 L 97 Laboratory Results 11/15/19 11/15/19 11/15/19 Range/Units 04:33 04:33 04:33 WBC 12.21 H (4.8-10.8) K/uL RBC 3.12 L (4.2-5.4) M/uL Hgb 8.1 L (12.0-16.0) g/dL Hct 26.5 L (37-47) % MCV 84.9 (80-100) fL MCH 26.0 (25-34) pg MCHC 30.6 L (32-36) g/dL RDW Std Deviation 60.6 H (36.4-46.3) fL RDW Coeff of Kristy 20.2 H (11.5-14.5) % Plt Count 244 (130-400) K/uL MPV 9.7 (7.4-10.4) fL Immature Gran % (Auto) 0.2 % Neut % (Auto) 81.1 % Lymph % (Auto) 5.3 % [place] % (Auto) 12.9 % Eos % (Auto) 0.3 % Baso % (Auto) 0.2 % Neut # (Auto) 9.89 H (1.4-6.5) K/uL Lymph # (Auto) 0.65 L (1.2-3.4) K/uL [place] # (Auto) 1.57 H (0.11-0.59) K/uL Eos # (Auto) 0.04 (0-0.5) K/uL Baso # (Auto) 0.03 (0-0.2) K/uL Immature Gran # (Auto) 0.03 H (0.00-0.02) K/uL Hypochromasia Present Anisocytosis Present PT 24.1 H (9.0-12.0) Seconds INR 2.4 H (0.9-1.1) APTT (21.0-31.0) Seconds PTT Ratio Sodium 142 (136-145) mmol/L Potassium 3.9 (3.5-5.1) mmol/L Chloride 111 H (98-107) mmol/L Carbon Dioxide 26 (21-32) mmol/L Anion Gap 5.0 (3-11) BUN 15 (7-18) mg/dl Creatinine 1.01 (0.6-1.2) mg/dl Est Cr Clr Drug Dosing 38.1 ml/min Est GFR ( Amer) 63.1 Est GFR (Non-Af Amer) 54.4 BUN/Creatinine Ratio 15.0 (10-20) Glucose 107 H (70-99) mg/dl Fasting Glucose 107 H (70-99) mg/dl Calcium 8.2 L (8.5-10.1) mg/dl Phosphorus 3.5 (2.5-4.9) mg/dl Magnesium 2.0 (1.8-2.4) mg/dl Total Bilirubin (0.2-1) mg/dl AST (15-37) U/L ALT (12-78) U/L Alkaline Phosphatase (45-117) U/L Troponin I (0-0.045) ng/ml Total Protein (6.4-8.2) gm/dl Albumin (3.4-5.0) gm/dl Globulin (2.5-4.0) gm/dl Albumin/Globulin Ratio (0.9-2) Lipase (73-393) U/L Blood Type Antibody Screen Antibody Identification Antibody ID Comment Crossmatch 11/14/19 11/14/19 11/14/19 Range/Units 18:05 18:05 18:05 WBC (4.8-10.8) K/uL RBC (4.2-5.4) M/uL Hgb (12.0-16.0) g/dL Hct (37-47) % MCV (80-100) fL MCH (25-34) pg MCHC (32-36) g/dL RDW Std Deviation (36.4-46.3) fL RDW Coeff of Kristy (11.5-14.5) % Plt Count (130-400) K/uL MPV (7.4-10.4) fL Immature Gran % (Auto) % Neut % (Auto) % Lymph % (Auto) % [place] % (Auto) % Eos % (Auto) % Baso % (Auto) % Neut # (Auto) (1.4-6.5) K/uL Lymph # (Auto) (1.2-3.4) K/uL [place] # (Auto) (0.11-0.59) K/uL Eos # (Auto) (0-0.5) K/uL Baso # (Auto) (0-0.2) K/uL Immature Gran # (Auto) (0.00-0.02) K/uL Hypochromasia Anisocytosis PT 23.4 H (9.0-12.0) Seconds INR 2.3 H (0.9-1.1) APTT 40.6 H (21.0-31.0) Seconds PTT Ratio 1.5 Sodium 138 (136-145) mmol/L Potassium 3.4 L (3.5-5.1) mmol/L Chloride 110 H (98-107) mmol/L Carbon Dioxide 24 (21-32) mmol/L Anion Gap 4.0 (3-11) BUN 17 (7-18) mg/dl Creatinine 1.13 (0.6-1.2) mg/dl Est Cr Clr Drug Dosing 40.8 ml/min Est GFR ( Amer) 55.1 Est GFR (Non-Af Amer) 47.5 BUN/Creatinine Ratio 14.9 (10-20) Glucose 92 (70-99) mg/dl Fasting Glucose (70-99) mg/dl Calcium 8.4 L (8.5-10.1) mg/dl Phosphorus (2.5-4.9) mg/dl Magnesium (1.8-2.4) mg/dl Total Bilirubin 0.3 (0.2-1) mg/dl AST 18 (15-37) U/L ALT 158 H (12-78) U/L Alkaline Phosphatase 107 (45-117) U/L Troponin I < 0.015 (0-0.045) ng/ml Total Protein 6.6 (6.4-8.2) gm/dl Albumin 3.0 L (3.4-5.0) gm/dl Globulin 3.6 (2.5-4.0) gm/dl Albumin/Globulin Ratio 0.8 L (0.9-2) Lipase 167 (73-393) U/L Blood Type B Negative Antibody Screen POSITIVE A Antibody Identification Anti-D Antibody ID Comment Pending Crossmatch See Detail 11/14/19 Range/Units 18:05 WBC 11.44 H (4.8-10.8) K/uL RBC 2.48 L (4.2-5.4) M/uL Hgb 5.6 L* (12.0-16.0) g/dL Hct 20.4 L* (37-47) % MCV 82.3 (80-100) fL MCH 22.6 L (25-34) pg MCHC 27.5 L (32-36) g/dL RDW Std Deviation 63.5 H (36.4-46.3) fL RDW Coeff of Kristy 22.8 H (11.5-14.5) % Plt Count 391 (130-400) K/uL MPV 10.1 (7.4-10.4) fL Immature Gran % (Auto) 0.2 % Neut % (Auto) 69.8 % Lymph % (Auto) 13.1 % [place] % (Auto) 16.0 % Eos % (Auto) 0.7 % Baso % (Auto) 0.2 % Neut # (Auto) 7.99 H (1.4-6.5) K/uL Lymph # (Auto) 1.50 (1.2-3.4) K/uL [place] # (Auto) 1.83 H (0.11-0.59) K/uL Eos # (Auto) 0.08 (0-0.5) K/uL Baso # (Auto) 0.02 (0-0.2) K/uL Immature Gran # (Auto) 0.02 (0.00-0.02) K/uL Hypochromasia Present Anisocytosis Present PT (9.0-12.0) Seconds INR (0.9-1.1) APTT (21.0-31.0) Seconds PTT Ratio Sodium (136-145) mmol/L Potassium (3.5-5.1) mmol/L Chloride (98-107) mmol/L Carbon Dioxide (21-32) mmol/L Anion Gap (3-11) BUN (7-18) mg/dl Creatinine (0.6-1.2) mg/dl Est Cr Clr Drug Dosing ml/min Est GFR ( Amer) Est GFR (Non-Af Amer) BUN/Creatinine Ratio (10-20) Glucose (70-99) mg/dl Fasting Glucose (70-99) mg/dl Calcium (8.5-10.1) mg/dl Phosphorus (2.5-4.9) mg/dl Magnesium (1.8-2.4) mg/dl Total Bilirubin (0.2-1) mg/dl AST (15-37) U/L ALT (12-78) U/L Alkaline Phosphatase (45-117) U/L Troponin I (0-0.045) ng/ml Total Protein (6.4-8.2) gm/dl Albumin (3.4-5.0) gm/dl Globulin (2.5-4.0) gm/dl Albumin/Globulin Ratio (0.9-2) Lipase (73-393) U/L Blood Type Antibody Screen Antibody Identification Antibody ID Comment Crossmatch Medications Administered Current Inpatient Medications Acetaminophen (Tylenol) 650 mg PO Q4H PRN PRN Reason: Pain or Fever Stop: 12/14/19 22:30 Al Hydrox/Mg Hydrox/Simethicone (Maalox) 15 ml PO Q4H PRN PRN Reason: Dyspepsia Stop: 12/14/19 22:30 Albuterol (Ventolin Hfa) 1 puffs INH Q6H PRN PRN Reason: Shortness Of Breath Stop: 12/14/19 23:03 Ascorbic Acid (Vitamin C) 500 mg PO QAM ANTONINA Stop: 12/15/19 08:59 Last Admin: 11/15/19 08:07 Dose: 500 mg Documented by: Bupropion HCl (Wellbutrin-Xl) 150 mg PO QAM ANTONINA Stop: 12/15/19 08:59 Last Admin: 11/15/19 08:07 Dose: 150 mg Documented by: Calcium Carbonate (Os-Wagner 500) 1,250 mg PO DAILY [facility] Stop: 12/15/19 08:59 Last Admin: 11/15/19 08:07 Dose: 1,250 mg Documented by: Cyanocobalamin (Vitamin B-12) 1,000 mcg IM Q21D [facility] Stop: 12/21/19 08:59 Diphenhydramine HCl (Benadryl Capsule) 25 mg PO HS PRN PRN Reason: Sleep Stop: 12/14/19 22:30 Pantoprazole Sodium 40 mg/ (Dextrose) 100 mls @ 20 mls/hr IV Q5H ANTONINA Stop: 12/14/19 22:30 Last Admin: 11/15/19 09:11 Dose: 8 mg/hr, 20 mls/hr Documented by: Sodium Chloride (Nss) 250 mls @ 15 mls/hr IV .[id number] PRN PRN Reason: For Transfusion Stop: 11/15/19 14:35 Sodium Chloride (Nss) 250 mls @ 15 mls/hr IV .[id number] PRN PRN Reason: For Transfusion Stop: 11/15/19 16:58 Magnesium Hydroxide (Milk Of Magnesia) 30 ml PO Q12H PRN PRN Reason: Constipation Stop: 12/14/19 22:30 Metoprolol Tartrate (Lopressor) 5 mg IV Q5M PRN PRN Reason: Tachycardia Stop: 12/15/19 09:14 Morphine Sulfate (Morphine Sulfate) 2 mg IV Q30M PRN PRN Reason: Chest Pain Stop: 11/28/19 22:30 Nitroglycerin (Nitrostat) 0.4 mg SL UD PRN PRN Reason: Chest Pain Stop: 12/14/19 22:30 Ondansetron HCl (Zofran) 4 mg IV Q6H PRN PRN Reason: Nausea Stop: 12/14/19 22:30 Polyethylene Glycol (Miralax Powder Packet) 17 gm PO DAILY PRN PRN Reason: Constipation Stop: 12/14/19 22:30 Simvastatin (Zocor) 20 mg PO [facility] Stop: 12/14/19 22:30 Last Admin: 11/14/19 23:13 Dose: 20 mg Documented by: Tramadol HCl (Ultram) 50 mg PO Q6H PRN PRN Reason: Pain Stop: 12/14/19 22:30 Venlafaxine HCl (Effexor Extended Release) [facility] [place] Stop: 12/15/19 08:59 Last Admin: 11/15/19 08:07 Dose: 150 mg Documented by: Vitamin D (Vitamin D3) 1,000 units PO QAM [facility] Stop: 12/15/19 08:59 Last Admin: 11/15/19 08:07 Dose: 1,000 units Documented by: Resident Activity Tracking Resident Involvement: Resident Care Provided Care Provided: Adult Hospital Medicine
[2019-11-15] MEDS ORDERED: SODIUM CHLORIDE 0.9% 1000ML 1,000 ML IV SCH (13:00)
--- NOTE | 2019-11-15 13:14 | Cardiology Consultation ---
Date of Consultation November 15, 2019 Assessment & Plan (1) Acute GI bleeding: -Coumadin currently on hold. -GI workup to be undertaken. -received 3 units packed red cells. (2) Aortic valve replaced: -St. 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 -normal coronaries on preoperative catheterization, 2003 (3) PAF (paroxysmal atrial fibrillation): -new diagnosis. -warfarin currently on hold. -may need an AV active drug. -continue to monitor. History of Present Illness Attending Physician: Aure Bedolla MD History of Present Illness Mrs. Pérez is a 74-year-old female admitted yesterday with an acute GI bleed and hemoglobin of 5.2. The patient is on chronic warfarin therapy for a mechanical aortic valve. This consultation was ordered to assist in her management. The patient typically follows with Dr. Rodriguez in the outpatient setting. The patient was in her usual state of health until several weeks prior to presentation. She began to note progressive weakness and fatigue. She was also craving ice which often happens when she is anemic. She was seen in Dr. Rodriguez's the office yesterday because of complaints of progressive lower extremity edema. Laboratory studies revealed a hemoglobin of 5.2 and the patient was sent to the emergency room for further care. The patient had a [employer]'s mechanical valve placed in the aortic position back in 2003 because of severe aortic stenosis and a bicuspid valve. She also had replacement of her aortic root and ascending thoracic aorta with a conduit. Preoperative cardiac catheterization showed no evidence of significant coronary disease. An echocardiogram performed in November 2017 noted normal left ventricular systolic function with an inferior wall motion abnormality. Gradients across the prosthetic valve were normal. Currently, the patient is resting comfortably in bed without complaints. Past medical and surgical history 1. 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 Hypertension 4. Hypercholesterolemia 5. RBBB 6. Left anterior hemiblock 7. 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 Spinal stenosis 10. DJD 11. Depression/anxiety 12. Migraine headaches 13. Hearing deficit 14. Chronic iron deficiency anemia 15. 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 NIKO/BSO 18. Tonsillectomy 19. Interocular lens implants 20. Epidural abscess-July 2009 Social history Single. Quit tobacco at age 40, 20 pack year history Rare alcohol Family history No early coronary artery disease Review systems A 10 point review of systems was negative except for that described above. Allergies Allergy/AdvReac Type Severity Reaction Status Date / Time heparin Allergy Severe developed Verified 11/14/19 18:32 antibody to heparin ferrous sulfate AdvReac Intermediate Gastrointestinal Verified 11/14/19 18:37 Upset adhesive tape AdvReac Mild skin Verified 11/14/19 18:32 sensitive Home Medications Home Medications Medication Instructions Recorded Confirmed Type albuterol sulfate 1 puff INHALATION Q6H PRN 02/01/18 11/14/19 History ascorbic acid (vitamin C) [Vitamin 500 mg PO QAM 02/01/18 11/14/19 History C] bupropion HCl [Wellbutrin XL] 150 mg PO QAM 02/01/18 11/14/19 History diphenhydramine HCl [Benadryl] 25 mg PO HS PRN 02/01/18 11/14/19 History lorazepam 1 mg PO HS 02/01/18 11/14/19 History simvastatin 20 mg PO HS 02/01/18 11/14/19 History tramadol 50 mg PO Q6H PRN 02/01/18 11/14/19 History venlafaxine [Effexor XR] 150 mg PO QAM 02/01/18 11/14/19 History cholecalciferol (vitamin D3) 0 unit PO QAM 10/31/18 11/14/19 History [Vitamin D3] warfarin 1 mg PO WK 10/31/18 11/14/19 History warfarin 3 mg PO 6XWK 10/31/18 11/14/19 History calcium carbonate [Calcium 600] 600 mg PO DAILY 11/14/19 11/14/19 History cyanocobalamin (vitamin B-12) 1,000 mcg IM .[id number] 11/14/19 11/14/19 History Patient History Medical History Anemia Anxiety Asthma ENVIRONMENTALLY INDUCED/NO INHALER USE RECENTLY Depression Hearing deficit Hyperlipidemia Hypertension Migraine Osteoarthritis Ovarian cyst Spinal stenosis Stomach ulcer "HILL ROFF 2 PROCEDURE" White coat syndrome with hypertension Surgical History History of adenoidectomy History of bilateral tubal ligation History of bowel resection History of cardiac cath History of cataract surgery History of colonoscopy History of esophagogastroduodenoscopy (EGD) History of heart valve replacement AORTIC VALVE REPLACEMENT [facility] History of tonsillectomy History of tooth extraction History of total abdominal hysterectomy and bilateral salpingo-oophorectomy Family History Mother Family history of diabetes mellitus Social History Preferred Language: Malian Communication Ability: Effective Visual Impairment: No Limitations Hearing Ability: Hard of Hearing Packing Line Operator Required: No Beliefs That Will Affect Care: None Current Living Situation: Alone Other Information That Helps Us Care for You: No Feels Safe at Home: Yes Safety Concerns: Feels Safe At This Time Smoking Status: Former smoker Second Hand Exposure: No ; Hx Alcohol Use: Yes Hx Substance Use: No Physical Exam Physical Exam: In general this is an obese white female lying supine in bed without complaints. HEENT exam is negative. Neck is supple with full carotid upstrokes. No carotid bruits. Jugular venous pressure is flat at 90 degrees. No thyromegaly. Cardiovascular exam reveals an irregular rhythm with an elevated heart rate. No obvious murmurs. Lungs are clear without rales, rhonchi or wheezes. Abdomen is obese without bruits. Extremities reveal intact radial artery pulses bilaterally. There is trace pretibial edema. Left knee is dressed. Results & Data ([facility]) Vital Signs (Past 12 Hours) Vital Signs Temp Pulse Pulse Resp BP BP Pulse Ox 11/15/19 11:53 37.0 C 72 18 116/53 L 95 11/15/19 11:22 37 C 75 18 118/69 97 11/15/19 10:28 36.8 C 73 16 111/48 L 96 11/15/19 10:26 37.1 C 79 18 111/51 L 96 11/15/19 10:12 37 C 77 18 114/62 95 11/15/19 09:42 36.3 C L 74 18 117/52 L 95 11/15/19 09:19 37.1 C 74 20 121/70 95 11/15/19 08:59 36.8 C 78 18 119/55 L 96 11/15/19 08:00 36.8 C 78 18 114/47 L 96 11/15/19 07:49 37 C 79 18 115/62 95 11/15/19 07:34 36.3 C L 77 18 98/47 L 97 11/15/19 07:18 37.3 C 83 16 104/57 L 97 11/15/19 05:27 37.9 C H 85 17 114/52 L 98 11/15/19 05:23 85 11/15/19 04:17 156 H 18 109/71 93 11/15/19 03:07 37.2 C 77 16 109/68 96 11/15/19 02:20 37.1 C 77 19 110/67 97 11/15/19 01:50 36.9 C 75 20 111/68 97 11/15/19 01:20 37.2 C 78 19 116/68 96 Laboratory Results CBC notes hemoglobin of 8.1, hematocrit 26.5, white count 12.2, platelet count of [id number]. Electrolytes note a sodium of 142, potassium 3.9, chloride 111, bicarb 26, BUN 15, creatinine 1.01, glucose of 107. Magnesium level is 2.0. Troponin I levels undetectable less than 0.015. INR was 2.3 on presentation, currently 2.4. Diagnostic Findings Initial EKG noted normal sinus rhythm with a right bundle-branch block and left anterior hemiblock. Second tracing noted atrial fibrillation with rapid ventricular response, a complete right bundle, and left axis deviation. Chest x-ray shows cardiomegaly but no acute disease. PG Care Time/CCT Total # of Minutes Spent Total Time Spent with Patient: Total time spent is greater than 50% in coordination of care (as documented) at patient's floor/unit and/or counseling patient: Coding Level of Care Code 91273 Initial Inpt Care Lvl 3 Diagnoses Acute GI bleeding K92.2 Aortic valve replaced Z95.2 PAF (paroxysmal atrial fibrillation) I48.0
--- NOTE | 2019-11-15 14:29 | Electrocardiogram Report ---
Test Reason : Blood Pressure : / mmHG Vent. Rate : 079 BPM Atrial Rate : 079 BPM P-R Int : 200 ms QRS Dur : 142 ms QT Int : 436 ms P-R-T Axes : 069 -24 018 degrees QTc Int : 499 ms Poor data quality, interpretation may be adversely affected Normal sinus rhythm Right bundle branch block Left anterior fascicular block Abnormal ECG When compared with ECG of 31-OCT-2018 14:52, Premature atrial complexes are no longer Present Nonspecific T wave abnormality now evident in Inferior leads Confirmed by Soren Vanessa ([id number]) on 11/15/2019 2:29:34 PM Referred By: REFERRED SELF Confirmed By:Soren Vanessa
--- NOTE | 2019-11-15 14:35 | Electrocardiogram Report ---
Test Reason : Blood Pressure : / mmHG Vent. Rate : 154 BPM Atrial Rate : 159 BPM P-R Int : 000 ms QRS Dur : 130 ms QT Int : 324 ms P-R-T Axes : 000 -44 121 degrees QTc Int : 518 ms Atrial fibrillation with rapid ventricular response Left anterior fascicular block Right bundle branch block Lateral infarct , age undetermined Abnormal ECG When compared with ECG of 14-NOV-2019 18:33, (unconfirmed) Atrial fibrillation has replaced Sinus rhythm Vent. rate has increased BY 75 BPM Lateral infarct is now Present Nonspecific T wave abnormality, worse in Lateral leads Confirmed by Soren Vanessa ([id number]) on 11/15/2019 2:35:14 PM Referred By: REFERRED SELF Confirmed By:Soren Vanessa
--- NOTE | 2019-11-15 14:37 | Electrocardiogram Report ---
Test Reason : Blood Pressure : / mmHG Vent. Rate : 140 BPM Atrial Rate : 070 BPM P-R Int : 000 ms QRS Dur : 130 ms QT Int : 326 ms P-R-T Axes : 000 -45 088 degrees QTc Int : 497 ms Atrial fibrillation with rapid ventricular response Right bundle branch block Left anterior fascicular block Bifascicular block Abnormal ECG When compared with ECG of 15-NOV-2019 04:13, (unconfirmed) Criteria for Lateral infarct are no longer Present Confirmed by Soren Vanessa ([id number]) on 11/15/2019 2:37:12 PM Referred By: REFERRED SELF Confirmed By:Soren Vanessa
--- NOTE | 2019-11-15 14:52 | Gastrointestinal Consultation ---
Date of Consultation November 15, 2019 Assessment & Plan (1) Acute GI bleeding: While there was some bright red bleed on the rectal exam, there is aero show of blood. this is more likely to be related to the rectal exam itself, possibly trauma. The does have a constant sense of stool in the rectum, which could potentially from proctitis, but there has been no evidence of this n the past exam. No clinical reason for this either. (2) Anemia: Her anemia is chronic as evidenced by hb of 5.1 with no true anemia symptoms that were new onset. She has been getting iron infusions every 6 months. Etiology has been thought to be the prior gastric surgery. Treated by jig maker at [place]. Unclear if celiac disease has been ruled out. Prior stool test apparently never showed blood and hence did not have capsule endoscopy. Suggest no scopes, monitor counts and check a reticulocyte count. No need to halt anticoagulation now given mechanical valve and absence of evidence of active bleeding. if counts are stable Ok to DC with outpatient follow up. (3) H/O Billroth II operation: May be the reason for chronic anemia. Plan per jig maker in [place]. History of Present Illness Reason for Consultation: rectal bleeding, anemia Attending Physician: Aure Bedolla MD History of Present Illness Patient admitted after being seen in cardiology clinic. Family requested Hand H as she was looking pale in comparison. no symptoms that were acute. Pt notes routinely tired and sleepy during the day. Long standing anemia, iron deficiency, blamed on billroth 2 surgery for PUD. No show of blood, no melena. Rectal exam in ER recorded as " wesley blood". No bowel movement for two days now. No change in appetite or bowel habits. Was in usual state of health and if labs were not abnormal, she would not have been in the hospital Allergies Allergy/AdvReac Type Severity Reaction Status Date / Time heparin Allergy Severe developed Verified 11/14/19 18:32 antibody to heparin ferrous sulfate AdvReac Intermediate Gastrointestinal Verified 11/14/19 18:37 Upset adhesive tape AdvReac Mild skin Verified 11/14/19 18:32 sensitive Home Medications Home Medications Medication Instructions Recorded Confirmed Type albuterol sulfate 1 puff INHALATION Q6H PRN 02/01/18 11/14/19 History ascorbic acid (vitamin C) [Vitamin 500 mg PO QAM 02/01/18 11/14/19 History C] bupropion HCl [Wellbutrin XL] 150 mg PO QAM 02/01/18 11/14/19 History diphenhydramine HCl [Benadryl] 25 mg PO HS PRN 02/01/18 11/14/19 History lorazepam 1 mg PO HS 02/01/18 11/14/19 History simvastatin 20 mg PO HS 02/01/18 11/14/19 History tramadol 50 mg PO Q6H PRN 02/01/18 11/14/19 History venlafaxine [Effexor XR] 150 mg PO QAM 02/01/18 11/14/19 History cholecalciferol (vitamin D3) 0 unit PO QAM 10/31/18 11/14/19 History [Vitamin D3] warfarin 1 mg PO WK 10/31/18 11/14/19 History warfarin 3 mg PO 6XWK 10/31/18 11/14/19 History calcium carbonate [Calcium 600] 600 mg PO DAILY 11/14/19 11/14/19 History cyanocobalamin (vitamin B-12) 1,000 mcg IM .[id number] 11/14/19 11/14/19 History Patient History Medical History Anemia (Acute) Anxiety Asthma ENVIRONMENTALLY INDUCED/NO INHALER USE RECENTLY Depression Hearing deficit Hyperlipidemia Hypertension Migraine Osteoarthritis Ovarian cyst Spinal stenosis Stomach ulcer "HILL ROFF 2 PROCEDURE" White coat syndrome with hypertension Surgical History History of adenoidectomy History of bilateral tubal ligation History of bowel resection History of cardiac cath History of cataract surgery History of colonoscopy History of esophagogastroduodenoscopy (EGD) History of heart valve replacement AORTIC VALVE REPLACEMENT [facility] History of tonsillectomy History of tooth extraction History of total abdominal hysterectomy and bilateral salpingo-oophorectomy Family History Mother Family history of diabetes mellitus Social History Preferred Language: Upper Sorbian Communication Ability: Effective Visual Impairment: No Limitations Hearing Ability: Hard of Hearing Inspector Water Pollution Control Required: No Beliefs That Will Affect Care: None Current Living Situation: Alone Other Information That Helps Us Care for You: No Feels Safe at Home: Yes Safety Concerns: Feels Safe At This Time Smoking Status: Former smoker Second Hand Exposure: No ; Hx Alcohol Use: Yes Hx Substance Use: No Review of Systems Cardiovascular: + edema; no chest pain with activity, no dyspnea at rest and no palpitations Gastrointestinal: + constant urge to pass stools; no abdominal pain, no bloating, no nausea, no coffee ground emesis, no hematemesis, no diarrhea/loose stools, no fecal incontinence and no blood in stools Physical Exam Constitutional: + thin; no acute distress Eyes: + scleral abnormality (pale mildly) Respiratory: normal respiratory effort, lungs clear to auscultation Cardiovascular: Rate/Rhythm: regular rate and regular rhythm mechanical valve sounds Chest (Breasts): Chest: normal inspection of chest Gastrointestinal (Abdomen): Inspection/Auscultation: + scaphoid and + abdominal surgical scar; no visible pulsation Percussion/Palpation: abdomen soft; abdomen nontender, no hepatosplenomegaly, no splenomegaly and no pulsatile mass Results & Data ([facility]) Vital Signs (Past 12 Hours) Vital Signs Temp Pulse Pulse Resp BP BP Pulse Ox 11/15/19 14:11 36.4 C L 71 16 118/70 98 11/15/19 13:55 36.7 C 73 20 117/66 98 11/15/19 11:53 37.0 C 72 18 116/53 L 95 11/15/19 11:22 37 C 75 18 118/69 97 11/15/19 10:28 36.8 C 73 16 111/48 L 96 11/15/19 10:26 37.1 C 79 18 111/51 L 96 11/15/19 10:12 37 C 77 18 114/62 95 11/15/19 09:42 36.3 C L 74 18 117/52 L 95 11/15/19 09:19 37.1 C 74 20 121/70 95 11/15/19 08:59 36.8 C 78 18 119/55 L 96 11/15/19 08:00 36.8 C 78 18 114/47 L 96 11/15/19 07:49 37 C 79 18 115/62 95 11/15/19 07:34 36.3 C L 77 18 98/47 L 97 11/15/19 07:18 37.3 C 83 16 104/57 L 97 11/15/19 05:27 37.9 C H 85 17 114/52 L 98 11/15/19 05:23 85 11/15/19 04:17 156 H 18 109/71 93 11/15/19 03:07 37.2 C 77 16 109/68 96 Laboratory Results CBC notes hemoglobin of 8.1, hematocrit 26.5, white count 12.2, platelet count of [id number]. Electrolytes note a sodium of 142, potassium 3.9, chloride 111, bicarb 26, BUN 15, creatinine 1.01, glucose of 107. Magnesium level is 2.0. Troponin I levels undetectable less than 0.015. INR was 2.3 on presentation, currently 2.4. Diagnostic Findings Initial EKG noted normal sinus rhythm with a right bundle-branch block and left anterior hemiblock. Second tracing noted atrial fibrillation with rapid ventricular response, a complete right bundle, and left axis deviation. Chest x-ray shows cardiomegaly but no acute disease.
[2019-11-15] MEDS ORDERED: WARFARIN SOD 7.5 MG TAB PO ONE (16:00)
--- NOTE | 2019-11-15 17:37 | Discharge Summary ---
Date of Service November 15, 2019 Admission HPI Per Admitting Provider 74 yo F with Hx multiple transfusions, PUD, Billroth II operation, mechanical aortic valve on warfarin who presents to the emergency department for increasing fatigue and general weakness. She states that she went to her primary care physician's office earlier today with a complaint of lower extremity swelling had some blood work done and was told that her hemoglobin was 5.2 and that she needed to come to the emergency department. She denies any nausea or vomiting, has had no episodes of melanotic stool or bright red blood per rectum or hematemesis. She states that she knew her hemoglobin was dropping because w henever it does she starts to crave ice and she has been craving it lately. She states that she gets an IV iron infusion every 6 months and has not had a blood transfusion in 3 to 4 years. She otherwise has no complaints Principal Diagnosis Symptomatic Anemia Discharge Exam Constitutional WD/WN, vitals as above Eyes PERRL, conjunctivae normal, anicteric sclerae Respiratory normal respiratory effort, lungs clear to auscultation Cardiovascular Rate/Rhythm: regular rate and regular rhythm Heart Sounds: + click and + murmur (systolic loudest over ARELIS) Vessels: normal peripheral pulses; no JVD Extremities: no edema Gastrointestinal (Abdomen) normal bowel sounds, soft, nontender, no hepatosplenomegaly Musculoskeletal no cyanosis or clubbing, extremities motor strength 5/5 Skin no rashes, warm and dry Neurologic patellar DTR's 2+ bilat, sensation intact Psychiatric A+Ox3, euthymic affect Discharge Data Allergies Allergy/AdvReac Type Severity Reaction Status Date / Time heparin Allergy Severe developed Verified 11/14/19 18:32 antibody to heparin ferrous sulfate AdvReac Intermediate Gastrointestinal Verified 11/14/19 18:37 Upset adhesive tape AdvReac Mild skin Verified 11/14/19 18:32 sensitive Consultations 11/14/19 20:13 ED Decision to Admit Stat 11/14/19 22:31 Consult Cardiology Routine 11/14/19 22:59 Consult Gastroenterology Routine Hospital Course (1) Acute GI bleeding: Laury Pérez is a 74 yo F with h/o multiple transfusions, PUD, Billroth II operation, mechanical aortic valve on warfarin who presents to the emergency department for increasing fatigue and general weakness. Symptomatic anemia: - Hemoglobin 5.6 on admission, MCV 82, platelets 391 - overnight received 3 Units of PRBCs, and 2 Units of FFP - Hgb 8.1 on discharge - GI consulted: no evidence of GI bleed, likely continuation of progressive anemia due to poor oral absorption - Mechanical Aortic Valve: - With history of mechanical aortic valve replacement on warfarin - INR of 2.4 AM of discharge - received 2 units of FFP for concern of active GI bleed, and 3 units of PRBCs - On discharge - given 7.5mg of Warfarin, instructed to take 5mg tomorrow - INR Sunday and then daily until INR at goal - follow-up at [facility] clinic on Sunday for hospital f/u a ppt and recheck of INR and CBC, and iron studies Total Time Total Time Spent Total Time Spent (In Minutes): see attending attestation Discharge Plan Discharge Items Patient Disposition: Home - Self-Care Reason For Visit: SYMPTOMATIC ANEMIA Discharge Diagnosis: Symptomatic Anemia Condition on Discharge: Good Activity: Per Instructions section Non-emergency contact: Primary Care Provider and Getter Welder Call non-emergency contact if: you have any medication questions and your symptoms worsen Follow-up/Referrals: Chidi Callahan [Primary Care Provider] - Diet: Regular Addtl Attending Provider Instructions: You were seen and admitted following having labs with your Getter Welder who dis covered that your blood counts were lower than they should be. During this admission you were repleted with more blood, and your counts all came back up. After discussing with the GI doctors and the Heart doctors the consensus was reached that this likely was not due to you having an acute bleed and that you would be safe to be discharged home. As a result of the blood products that you received, we are expecting your INR to fall below the therapeutic window that you should have with your mechanical heart valve. Before discharge we gave you 7.5mg of Warfarin in an effort to return your blood levels closer to their goal. Tomorrow you should take 5mg of Warfarin in order to continue these efforts. Sunday you should measure your INR at home, and have your Daughter call in the results to [facility] to Dr. Ruslan Oliver's attention. I will give you a call before your next Warfarin dose to confirm the dosage that you should take. Additionally, you will have an appointment with me on Sunday at the [facility] to recheck your blood counts and Iron studies. We will continue to have you check your INR daily until we are certain you have returned to the appropriate range. Pending Studies at Discharge: No Stand-Alone Forms: My [facility], Smoking Cessation Medications and DC Order Prescriptions: Continued warfarin 1 mg tablet 1 mg PO WK RF: 0 warfarin 1 mg tablet 3 mg PO [id number] RF: 0 cholecalciferol (vitamin D3) [Vitamin D3] 1,000 unit Capsule 0 unit PO QAM RF: 0 venlafaxine [Effexor XR] 150 mg Capsule,Extended Release 24hr 150 mg PO QAM RF: 0 tramadol 50 mg Tablet 50 mg PO Q6H PRN (Reason: Pain) RF: 0 ascorbic acid (vitamin C) [Vitamin C] 500 mg Tablet 500 mg PO QAM RF: 0 simvastatin 20 mg Tablet 20 mg PO HS RF: 0 diphenhydramine HCl [Benadryl] 25 mg Capsule 25 mg PO HS PRN (Reason: Sleep) RF: 0 lorazepam 1 mg Tablet 1 mg PO HS RF: 0 bupropion HCl [Wellbutrin XL] 150 mg Tablet Extended Release 24 Hr 150 mg PO QAM RF: 0 albuterol sulfate 90 mcg/actuation Aerosol Powdr Breath Activated 1 puff INHALATION Q6H PRN (Reason: Shortness Of Breath) RF: 0 calcium carbonate [Calcium 600] 600 mg calcium (1,500 mg) Tablet 600 mg PO DAILY RF: 0 cyanocobalamin (vitamin B-12) 1,000 mcg/mL Solution 1,000 mcg IM .[id number] RF: 0 Discharge Orders: Discharge Order (Routine); Ordered 11/15/19 Ordered By: Ruslan Walls/Other Patient Handouts: Bleeding Gastrointestinal, AFL/Afib, Understanding Atrial Fibrillation Admission Data Admit Date/Time: 11/14/19 21:09 Attending Provider: Aure Bedolla Admit Provider: Courtney Bonner Primary Care Provider: Chidi Callahan Other Providers: Monty Hughes ; Soren Vanessa ; Chandu Ge Other Interventions: Discharge Summary Assessment (RN) Last Done: 11/15/19 17:35 Supervising Physician Co-Signing Physician Notes Resident Physician Supervision Note: I independently interviewed and examined the patient and verified the morgan history and physical, reviewed labs and image studies, discussed the case with the resident Dr. Oliver and agree with the findings and care plan. Time spent in discharge 35 min Resident Activity Tracking Resident Involvement: Resident Care Provided Care Provided: Adult Hospital Medicine
--- NOTE | 2019-11-15 22:28 | Billing Data ---
Date of Service November 15, 2019 Coding Level of Care Code 77134 Initial Inpt Care Lvl 3
[2019-11-21] MEDS ORDERED: CYANOCOBALAMIN 1000 MCG/ML VIAL IM SCH (09:00)
== END 2019-11-15 19:10 | disposition home or self-care (01) | DRG 812 ==
LOC: ED 17:31 → 2N 21:09 → SUATTDRO 21:09 → 2N 22:10 → 2S 11-15 04:36

== ENCOUNTER 2023-05-18 15:56 | Observation (INO) ==
--- NOTE | 2023-05-18 16:10 | ED Triage Note ---
Date of Service May 18, 2023 Provider in Triage Author: Sary Davila History of Present Illness This patient was briefly evaluated while in triage. An abbreviated physical exam was performed. This patient is a 77-year-old Female who presents to the ED for evaluation of "pain everywhere." She has pain in her low back and neck. She has not been moving due to her pain. Her daughter states she hasn't been taking her Warfarin or other meds. She also thinks she has a UTI and has loose stools. Symptoms started 3 days ago. Physical Exam VITALS: Vitals are noted on the nurse's note and reviewed by myself. GENERAL: This is a 77-year-old female, in no acute distress, well-developed well-nourished. HEART: Regular rate and rhythm. Mechanical valve noted. LUNGS: Clear to auscultation bilaterally without wheezes, rales or rhonchi. ABDOMEN: Soft, nontender to palpation. NEURO: Patient was alert and oriented to person place and time. Initial orders for labs and / or imaging were placed and patient was placed in the waiting area until a bed is available. Please see further documentation for the full ED course.
--- NOTE | 2023-05-18 16:41 | XRay Report ---
SINGLE VIEW CHEST CLINICAL HISTORY: Thoracic back pain FINDINGS: A PA chest radiograph is compared to study dated 11/14/2019 and correlated with chest CT date d 07/21/2009. The patient is status post midline sternotomy and cardiac valve surgery. The heart is mi ldly enlarged and noting atherosclerotic calcification of the thoracic aorta. The pulmonary vasculatu re is noncongested. Chronic interstitial thickening is similar to previous. Mild scarring/atelectasis is noted at the lung bases. The lungs and pleural spaces are otherwise clear. No pneumothorax is see n. The skeletal structures are osteopenic. There are chronic/healed right-sided rib fractures intact. Suture material is noted in the left upper quadrant of the abdomen. Surgical clips project over the gastroesophageal junction. IMPRESSION: Mild cardiomegaly with no active disease in the chest. ACT 112: Negative or not required by law. Electronically signed by: Olu Killian M.D. 05/18/2023 4:40 PM
[2023-05-18 16:57] LABS: Influenza A virus by PCR Negative (Neg); Influenza B virus by PCR Negative (Neg); RSV by PCR Negative (Neg); SARS CoV2 RNA(COVID-19) Ceph NEGATIVE (Negative)
[2023-05-18 17:11] LABS: Basophils # (auto) 0.04 K/uL (0.00-0.20); Basophils % (auto) 0.3 %; Eosinophils # (auto) 0.04 K/uL (0.00-0.50); Eosinophils % (auto) 0.3 %; Hematocrit (blood only) 33.1 % (37.0-47.0); Hemoglobin 10.9 g/dl (12.0-16.0); Immature Granulocytes # (auto) 0.07 K/uL (0.01-0.20); Immature Granulocytes % (auto) 0.5 %; Lymphocytes # (auto) 0.68 K/uL (1.20-3.40); Lymphocytes % (auto) 4.8 %; Mean Corpuscular Hemoglobin 31.2 pg (25.0-34.0); Mean Corpuscular Hgb Conc 32.9 g/dL (32.0-36.0); Mean Corpuscular Volume 94.8 fL (80.0-100.0); Mean Platelet Volume 10.4 fL (9.4-12.4); Monocytes # (auto) 1.76 K/uL (0.11-0.59); Monocytes % (auto) 12.4 %; Neutrophils % (auto) 81.7 %; Platelet Count 307 K/uL (130-400); RDW Coefficient of Variation 11.7 % (11.5-14.5); RDW Standard Deviation 40.2 fL (36.4-46.3); Red Blood Count 3.49 M/uL (4.20-5.40); White Blood Count 14.19 K/ul (4.8-10.8)
[2023-05-18 17:26] LABS: Alanine Aminotransferase 13 U/L (7-52); Albumin Globulin Ratio 1.1 (0.9-2); Albumin Level 3.6 gm/dl (3.4-5.0); Alkaline Phosphatase 86 U/L (34-104); Anion Gap 9 (3-11); Aspartate Aminotransferase 22 U/L (13-39); BUN Creatinine Ratio 13.6 (10-20); Bilirubin,Total 0.4 mg/dl (0.2-1.0); Blood Urea Nitrogen 14 mg/dl (6-23); Calcium 9.3 mg/dl (8.6-10.3); Carbon Dioxide 24 mmol/L (21-32); Chloride 100 mmol/L (98-107); Est GFR (African American) 60.3 ml/min; Globulin 3.4 gm/dl (2.5-4.0); Glucose 109 mg/dl (70-99(Fasting)); Potassium 3.4 mmol/L (3.5-5.1); Sodium 133 mmol/L (136-145)
[2023-05-18 17:43] LABS: INR 2.5 (0.9-1.1); Prothrombin Time 26.3 Seconds (9.0-12.0)
[2023-05-18] MEDS ORDERED: SODIUM CHLORIDE 0.9% 500 ML IV ONE ×2 (18:33→19:59)
[2023-05-18] MEDS ORDERED: MoRPHine SULFATE 2 MG/ML CARP IV STA ×2 (18:34→19:52)
[2023-05-18] MEDS ORDERED: ONDANSETRON INJ 2 MG/ML 2 ML VIAL IV STA (18:34)
--- NOTE | 2023-05-18 18:46 | Emergency Department Note ---
Impression & Plan Acute pyelonephritis, Back pain ED Provider Note NAME: TEDDY GODWIN AGE: 77 SEX: F : 1945 ARRIVES VIA: Walk-In INFORMANT: Patient, the patient's family member ED PROVIDER(S): Soren Mix DO CHIEF COMPLAINT: Back pain HPI: The patient is a 77-year-old female who presented to the emergency department for an evaluation of back pain. The patient started having symptoms over the last few days. Her family ember brought her to the emergency department. She was concerned there could be an infection. The patient's had sepsis before. She was very concerned that this could be another episode of sepsis. The patient's had no fever but she has had a slight cough. She denies having any dysuria or frequency. The patient denies having any recent trauma. She complains of low lumbar pain. There is no flank pain reported. There is no chest pain but the patient does have back pain that goes into her shoulders and her neck. ROS: See above HPI for pertinent positives & negatives. A total of 10 systems reviewed and were otherwise negative. PAST MEDICAL HISTORY: See Below PAST SURGICAL HISTORY: See Below FAMILY HISTORY: See Below SOCIAL HISTORY: See Below HOME MEDICATIONS: See Below ALLERGIES: See Below VITALS: See Below PHYSICAL EXAMINATION: GENERAL: The patient was evaluated in the front of the pod. The patient was awake and alert. She appears somewhat frail. EYES: The conjunctivae are clear. The pupils are round and reactive. EARS, NOSE, MOUTH AND THROAT: The nose is without any evidence of any deformity. NECK: The neck is nontender and supple. RESPIRATORY: Normal respiratory effort is noted there is no evidence of wheezing rhonchi or rales CARDIOVASCULAR: Regular rate and rhythm was noted to auscultation. Metallic click was appreciated.. GASTROINTESTINAL: The abdomen is soft. Abdomen is nontender. BACK: There was midline tenderness noted over the lumbar and thoracic spine. There is no step-off. Range of motion appears intact but painful. MUSCULOSKELETAL/EXTREMITIES: There is no evidence of gross deformity full range of motion is noted in the hips and shoulders. SKIN: There is no obvious evidence of any rash. There are no petechiae, pallor or cyanosis noted. NEUROLOGIC: Patient is awake alert and oriented x3 strength is symmetric patellar reflexes are 2+ bilaterally MEDICAL DECISION MAKING: The patient is a 77-year-old female who presented to the emergency department for an evaluation of back pain. The patient has been having dysuria symptoms as well. I discussed the patient's laboratory and radiographic studies with her. She was treated with IV fluids IV pain medication and IV antibiotics for presumed urinary tract infection. She was reevaluated multiple times. The patient lives at home alone. This was a concern for the family member. I discussed the patient's condition with the on-call [facility] hospitalist group. They have agreed to evaluate the patient in the emergency department for further management and disposition. The patient was feeling much better on reevaluation Triage Nursing notes reviewed. Prior medical records reviewed Vital Signs: reviewed and remarkable for no significant abnormalities Differential diagnosis: Musculoskeletal, disc herniation, fracture, metastatic disease, cord compression, discitis, sciatica, cauda equina, infection, aortic disease, renal colic, gastrointestinal, as well as other pathologies. ER treatment provided: See below Diagnostics interpreted by me: ECG: EKG was obtained in the emergency department. My interpretation is normal sinus rhythm at 70 bpm. Right bundle branch block pattern was noted. LVH was suggested. This was compared to a tracing from November 142019. Sinus rhythm has replaced sinus tachycardia compared to the previous tracing. Cardiac Monitoring: An order was placed for continuous cardiac monitoring. The monitor shows a rate of 77 bpm with sinus rhythm. Laboratory studies: As stated above and show below. Imaging studies: See below. Radiographic imaging was reviewed by myself Consultation(s): I discussed this case with Dr. Hughes Past Med/Surg History Medical History (Updated 05/18/23 @ 23:35 by Soren Mix DO) Ovarian cyst Spinal stenosis Osteoarthritis Stomach ulcer "HILL ROFF 2 PROCEDURE" Anemia Hearing deficit Depression Anxiety Migraine White coat syndrome with hypertension Hypertension Hyperlipidemia Asthma ENVIRONMENTALLY INDUCED/NO INHALER USE RECENTLY Surgical History History of total abdominal hysterectomy and bilateral salpingo-oophorectomy History of bilateral tubal ligation History of esophagogastroduodenoscopy (EGD) History of colonoscopy History of bowel resection History of adenoidectomy History of tonsillectomy History of tooth extraction History of cataract surgery History of cardiac cath History of heart valve replacement AORTIC VALVE REPLACEMENT [facility] Family History Mother Family history of diabetes mellitus Social History Smoking Status: Former smoker Tobacco Type: Cigarettes Second Hand Exposure: No; Hx Alcohol Use: Yes Hx Substance Use: No Preferred Language: Macedonian Communication Ability: Effective Visual Impairment: No Limitations Hearing Ability: Hard of Hearing Travel Agency Manager Required: No Beliefs That Will Affect Care: None Current Living Situation: Alone Feels Safe at Home: Yes Assistive Devices: Glasses Allergies Allergies Allergy/AdvReac Type Severity Reaction Status Date / Time heparin Allergy Severe developed Verified 05/18/23 20:19 antibody to heparin ferrous sulfate AdvReac Intermediate Gastrointestinal Verified 05/18/23 20:19 Upset adhesive tape AdvReac Mild skin Verified 05/18/23 20:19 sensitive Home Meds Home Medications Medication Instructions Recorded Confirmed albuterol sulfate 90 mcg/actuation 1 puff inhalation Q6H PRN 02/01/18 05/18/23 breath activated powder inhaler Shortness Of Breath diphenhydramine HCl 25 mg capsule 25 mg PO DIRECTED PRN Sleep 02/01/18 05/18/23 (Benadryl) lorazepam 1 mg tablet 1 mg PO DAILY PRN Anxiety 02/01/18 05/18/23 simvastatin 20 mg tablet 20 mg PO HS 02/01/18 05/18/23 tramadol 50 mg tablet 50 mg PO Q6H PRN Pain 02/01/18 05/18/23 venlafaxine 150 mg 150 mg PO QAM 02/01/18 05/18/23 capsule,extended release 24 hr (Effexor XR) warfarin 1 mg tablet 3 mg PO QPM 10/31/18 05/18/23 ascorbic acid (vitamin C) 1,000 mg 1 g PO DAILY 05/18/23 05/18/23 tablet (Vitamin C) bumetanide 1 mg tablet 1 mg PO DAILY 05/18/23 05/18/23 cholecalciferol (vitamin D3) 10 10 mcg PO DAILY 05/18/23 05/18/23 mcg (400 unit) capsule (Vitamin D3) cyanocobalamin (vitamin B-12) 1,000 mcg PO DAILY 05/18/23 05/18/23 1,000 mcg tablet (Vitamin B-12) folic acid 400 mcg tablet 0.4 mg PO DAILY 05/18/23 05/18/23 potassium chloride 20 mEq 20 meq PO DAILY 05/18/23 05/18/23 tablet,extended release(part/cryst) (Noemi Quinn) Results & Data (ED) Vital Signs Vital Signs - 24 hr 05/18/23 16:08 05/18/23 18:44 05/18/23 18:45 Temperature 36.6 C Temperature Source Temporal Artery Scan Pulse Rate 85 85 Pulse Rate [Apical] Pulse Rate from SpO2 Sensor Respiratory Rate 20 Respiratory Depth Blood Pressure 134/55 L 171/65 H Blood Pressure [Right Arm] Blood Pressure Mean 81 105 Blood Pressure Mean [Right Arm] Blood Pressure Position [Right Arm] Pulse Oximetry 97 Oxygen Delivery Method Sepsis Recent Fever Within 48 Hours No Sepsis New/Unexplained Change in Mental Status N/A Sepsis Action Taken by Nursing No Action Required 05/18/23 18:45 05/18/23 19:00 05/18/23 21:00 Temperature Temperature Source Pulse Rate 84 Pulse Rate [Apical] 82 77 Pulse Rate from SpO2 Sensor 84 Respiratory Rate 23 18 18 Respiratory Depth Normal Normal Blood Pressure Blood Pressure [Right Arm] 147/68 H 131/63 Blood Pressure Mean Blood Pressure Mean [Right Arm] 94 85 Blood Pressure Position [Right Arm] Semi-fowlers Semi-fowlers Pulse Oximetry 98 98 100 Oxygen Delivery Method Room Air Room Air Sepsis Recent Fever Within 48 Hours Sepsis New/Unexplained Change in Mental Status Sepsis Action Taken by Long Term Medications Current Medication List: was personally reviewed by me Laboratory Data Attestation: I reviewed the patient's lab results. 05/18/23 16:45 05/18/23 16:45 Lab Results 05/18/23 05/18/23 05/18/23 Range/Units 16:45 18:25 18:42 WBC 14.19 H (4.8-10.8) K/ul RBC 3.49 L (4.20-5.40) M/uL Hgb 10.9 L (12.0-16.0) g/dl Hct 33.1 L (37.0-47.0) % MCV 94.8 (80.0-100.0) fL MCH 31.2 (25.0-34.0) pg MCHC 32.9 (32.0-36.0) g/dL RDW Std Deviation 40.2 (36.4-46.3) fL RDW Coeff of Kristy 11.7 (11.5-14.5) % Plt Count 307 (130-400) K/uL MPV 10.4 (9.4-12.4) fL Immature Gran % (Auto) 0.5 % Neut % (Auto) 81.7 % Lymph % (Auto) 4.8 % [place] % (Auto) 12.4 % Eos % (Auto) 0.3 % Baso % (Auto) 0.3 % Neut # (Auto) 11.60 H (1.40-6.50) K/uL Lymph # (Auto) 0.68 L (1.20-3.40) K/uL [place] # (Auto) 1.76 H (0.11-0.59) K/uL Eos # (Auto) 0.04 (0.00-0.50) K/uL Baso # (Auto) 0.04 (0.00-0.20) K/uL Immature Gran # (Auto) 0.07 (0.01-0.20) K/uL PT 26.3 H (9.0-12.0) Seconds INR 2.5 H (0.9-1.1) APTT 51 H (21-31) Seconds PTT Ratio 1.8 Sodium 133 L (136-145) mmol/L Potassium 3.4 L (3.5-5.1) mmol/L Chloride 100 (98-107) mmol/L Carbon Dioxide 24 (21-32) mmol/L Anion Gap 9 (3-11) BUN 14 (6-23) mg/dl Creatinine 1.03 (0.6-1.2) mg/dl Est Cr Clr Drug Dosing Not Reportable Est GFR ( Amer) 60.3 ml/min Est GFR (Non-Af Amer) 52.0 ml/min BUN/Creatinine Ratio 13.6 (10-20) Glucose 109 H (70-99(Fasting)) mg/dl Calcium 9.3 (8.6-10.3) mg/dl Total Bilirubin 0.4 (0.2-1.0) mg/dl AST 22 (13-39) U/L ALT 13 (7-52) U/L Alkaline Phosphatase 86 (34-104) U/L Troponin I High Sens 14.9 H (0-14) pg/ml C-Reactive Protein 28.99 H (0-0.5) mg/dl Total Protein 7.0 (6.0-8.3) gm/dl Albumin 3.6 (3.4-5.0) gm/dl Globulin 3.4 (2.5-4.0) gm/dl Albumin/Globulin Ratio 1.1 (0.9-2) Procalcitonin 0.34 (0-0.5) ng/ml Urine Color Yellow Urine Appearance Cloudy A (Clear) Urine pH 5.5 (4.5-7.5) Ur Specific [place] 1.018 (1.000-1.030) Urine Protein 2+ H (Negative) Urine Glucose (UA) Negative (Negative) Urine Ketones Trace H (Negative) Urine Blood Trace H (Negative) Urine Nitrite Negative (Negative) Urine Bilirubin Negative (Negative) Urine Urobilinogen Negative (Negative) Ur Leukocyte Esterase 2+ H (Negative) Urine WBC (Auto) >30 H (0-5) /hpf Urine RBC (Auto) 0-4 (0-4) /hpf U Hyaline Cast (Auto) 1-5 (0-5) /lpf U Epithel Cells (Auto) >30 H (0-5) /lpf Urine Bacteria (Auto) Negative (Negative) Administered Medications Sodium Chloride (Nss) 1,000 mls @ 125 mls/hr IV .Q8H ANTONINA Stop: 05/19/23 05:29 Last Admin: 05/18/23 21:40 Dose: 125 mls/hr Documented By: VICKIE Discontinued Medications Sodium Chloride (Nss) 500 mls @ 999 mls/hr IV .Q31M ONE Stop: 05/18/23 19:03 Last Infusion: 05/18/23 19:18 Dose: Infused Documented By: Admin: 05/18/23 18:38 Dose: 999 mls/hr Documented By: AWILDA Ceftriaxone Sodium (Rocephin) 2,000 mg in 50 mls @ 100 mls/hr IV NOW STA Stop: 05/18/23 20:15 Last Infusion: 05/18/23 20:31 Dose: Infused Documented By: Admin: 05/18/23 20:01 Dose: 100 mls/hr Documented By: ONEL Sodium Chloride (Nss) 500 mls @ 999 mls/hr IV .Q31M ONE Stop: 05/18/23 20:29 Last Infusion: 05/18/23 20:51 Dose: Infused Documented By: Admin: 05/18/23 20:20 Dose: 999 mls/hr Documented By: VICKIE Lidocaine (Lidocaine 5% 1 Patch) 1 patch TD NOW STA Stop: 05/18/23 21:27 Last Admin: 05/18/23 21:40 Dose: 1 patch Documented By: VICKIE Morphine Sulfate (Morphine Sulfate 2 Mg/Ml Carp) 2 mg IV NOW STA Stop: 05/18/23 18:35 Last Admin: 05/18/23 18:46 Dose: 2 mg Documented By: CINTHIA Morphine Sulfate (Morphine Sulfate 2 Mg/Ml Carp) 2 mg IV NOW STA Stop: 05/18/23 19:53 Last Admin: 05/18/23 20:02 Dose: 2 mg Documented By: ONEL Ondansetron HCl (Ondansetron Inj 2 Mg/Ml 2 Ml Vial) 4 mg IV NOW STA Stop: 05/18/23 18:35 Last Admin: 05/18/23 18:45 Dose: 4 mg Documented By: CINTHIA Imaging Data Attestation: I personally reviewed and interpreted this imaging study as follows: My Impression: 1 view chest x-ray was obtained in the emergency department. My interpretation is no free air or definite infiltrate, final report below Radiologist's Impression: Chest X-Ray 05/18/23 16:10 SINGLE VIEW CHEST CLINICAL HISTORY: Thoracic back pain FINDINGS: A PA chest radiograph is compared to study dated 11/14/2019 and correlated with chest CT dated 07/21/2009. The patient is status post midline sternotomy and cardiac valve surgery. The heart is mildly enlarged and noting atherosclerotic calcification of the thoracic aorta. The pulmonary vasculature is noncongested. Chronic interstitial thickening is similar to previous. Mild scarring/atelectasis is noted at the lung bases. The lungs and pleural spaces are otherwise clear. No pneumothorax is seen. The skeletal structures are osteopenic. There are chronic/healed right-sided rib fractures intact. Suture material is noted in the left upper quadrant of the abdomen. Surgical clips project over the gastroesophageal junction. IMPRESSION: Mild cardiomegaly with no active disease in the chest. ACT 112: Negative or not required by law. Electronically signed by: Olu Killian M.D. 05/18/2023 4:40 PM Discharge Plan Visit Data Chief Complaint: Urinary Symptoms Stated Complaint: BACK/NECK PAIN, NOT EATING, BURNING PEE ED Provider: Soren Mix Discharge Problem: Acute pyelonephritis, Back pain Patient Disposition: Admitted As Inpatient Discharge Instructions Interventions: ED Discharge Assessment Last Done: 05/18/23 22:45 Discharge Problem: Back pain Qualifiers: Back pain location: low back pain Chronicity: acute Back pain laterality: u nspecified Sciatica presence: unspecified whether sciatica present Qualified Code(s): M54.50 - Low back pain, unspecified
[2023-05-18 19:08] LABS: C Reactive Protein 28.99 mg/dl (0-0.5)
[2023-05-18 19:12] LABS: Troponin I High Sensitivity 14.9 pg/ml (0-14)
[2023-05-18 19:14] LABS: Appearance Urine Cloudy (Clear); Bacteria Urine Automated Negative (Negative); Bilirubin Urine Negative (Negative); Blood Urine Trace (Negative); Color Urine Yellow; Epithelial Cell Urine Auto >30 /lpf (0-5); Glucose Urine UA Negative (Negative); Ketones Urine Trace (Negative); Leukocyte Esterase Urine 2+ (Negative); Nitrite Urine Negative (Negative); Protein Urine 2+ (Negative); RBC Urine Automated 0-4 /hpf (0-4); Specific Gravity Urine 1.018 (1.000-1.030); Urobilinogen Urine Negative (Negative); WBC Urine Automated >30 /hpf (0-5); pH Urine 5.5 (4.5-7.5)
[2023-05-18 19:41] LABS: Partial Thromboplastin Ratio 1.8; Partial Thromboplastin Time 51 Seconds (21-31)
[2023-05-18] MEDS ORDERED: cefTRIAXone SODIUM 2,000 MG/50 ML BAG IV STA (19:46)
[2023-05-18] MEDS ORDERED: LIDOCAINE 5% 1 PATCH TD STA (21:26)
--- NOTE | 2023-05-18 21:26 | History & Physical Report ---
Date of Service May 18, 2023 Assessment & Plan (1) Intractable back pain: Plan: 77yo Female with PMH mechanical heart valve on warfarin, pAfib, hx. Billroth II procedure, chronic back pain with cervical spinal stenosis here for worsened upper back pain and concern UTI. Back Pain -In the setting of 3 days limited mobility and possible UTI -creatine kinase pending -received morphine 2mg IV and 1L NSS in ED with some improvement -admit to med/tele -continue NSS 125mls/h reassess breathing status after 1L bag, patient uncertain if she has mild CHF -ordered PT/OT -ordered lidocaine patch, PRN tylenol avoid NSAIDS with hx PUD -if needed can continue home tramadol -trend BMP UTI -UA concerning for infection -WBC 14.19, CRP 28.99 -Urine culture pending -received ceftriaxone in ED, will continue ceftriaxone at this time -trend cbc Mechanical heart valve -continue warfarin -trend PT/INR -holding bumex at this time given concern dehydration Anxiety/Depression -continue venlafaxine HLD -continue rosuvastatin Elevated troponin -trp 14.9, repeat pending FENa: regular Code Status: Full DVT PPX: warfarin PT/OT: ordered Dispo: med/tele Belkis Courtney D.O. PGY 3, FCM (2) Neck pain: (3) Urinary tract infection: (4) History of mechanical aortic valve replacement: (5) Depression: History of Present Illness Primary Care Provider: NO PCP 77yo Female with PMH mechanical heart valve on warfarin, pAfib, hx. Billroth II procedure, chronic back pain with cervical spinal stenosis here for worsened upper back pain and concern UTI. Patient states she's been having upper back pain in her neck and left shoulder over the last 3 days, felt like a bruise not a stabbing pain, did not get better with her home tramadol. Patient able to shift and point to area of pain on her back, states it is a 10/10 pain. Patient's daughter states patient has been sitting in her chair not moving or eating for 3 days due to the pain, has noted several days ago patient complained of burning with urination that improved after patient ate cranberries. At this time patient denies any fever SOB nausea vomiting abd pain, urinary difficulty frequency or burning, changes in bowel movement. Patient states she gets occasional numbness in both legs and her left arm. At baseline patient walks without assistance, she lives alone with 3 cats, daughter who is JESSICA lives 30min away. Patient at baseline has poor appetite and does not walk much. Patient insists she stays hydrated with 3 quarts iced tea and coffee. Allergies Allergy/AdvReac Type Severity Reaction Status Date / Time heparin Allergy Severe developed Verified 05/18/23 20:19 antibody to heparin ferrous sulfate AdvReac Intermediate Gastrointestinal Verified 05/18/23 20:19 Upset adhesive tape AdvReac Mild skin Verified 05/18/23 20:19 sensitive Home Medications Medication Instructions Recorded Confirmed Type albuterol sulfate 90 mcg/actuation 1 puff inhalation Q6H PRN 02/01/18 05/18/23 History breath activated powder inhaler Shortness Of Breath diphenhydramine HCl 25 mg capsule 25 mg PO DIRECTED PRN Sleep 02/01/18 05/18/23 History (Benadryl) lorazepam 1 mg tablet 1 mg PO DAILY PRN Anxiety 02/01/18 05/18/23 History simvastatin 20 mg tablet 20 mg PO HS 02/01/18 05/18/23 History tramadol 50 mg tablet 50 mg PO Q6H PRN Pain 02/01/18 05/18/23 History venlafaxine 150 mg 150 mg PO QAM 02/01/18 05/18/23 History capsule,extended release 24 hr (Effexor XR) warfarin 1 mg tablet 3 mg PO QPM 10/31/18 05/18/23 History ascorbic acid (vitamin C) 1,000 mg 1 g PO DAILY 05/18/23 05/18/23 History tablet (Vitamin C) bumetanide 1 mg tablet 1 mg PO DAILY 05/18/23 05/18/23 History cholecalciferol (vitamin D3) 10 10 mcg PO DAILY 05/18/23 05/18/23 History mcg (400 unit) capsule (Vitamin D3) cyanocobalamin (vitamin B-12) 1,000 mcg PO DAILY 05/18/23 05/18/23 History 1,000 mcg tablet (Vitamin B-12) folic acid 400 mcg tablet 0.4 mg PO DAILY 05/18/23 05/18/23 History potassium chloride 20 mEq 20 meq PO DAILY 05/18/23 05/18/23 History tablet,extended release(part/cryst) (Klor-Con M) Past Med/Surg History Medical History (Updated 05/18/23 @ 23:35 by Soren Mix DO) Ovarian cyst Spinal stenosis Osteoarthritis Stomach ulcer "HILL ROFF 2 PROCEDURE" Anemia Hearing deficit Depression Anxiety Migraine White coat syndrome with hypertension Hypertension Hyperlipidemia Asthma ENVIRONMENTALLY INDUCED/NO INHALER USE RECENTLY Surgical History History of total abdominal hysterectomy and bilateral salpingo-oophorectomy History of bilateral tubal ligation History of esophagogastroduodenoscopy (EGD) History of colonoscopy History of bowel resection History of adenoidectomy History of tonsillectomy History of tooth extraction History of cataract surgery History of cardiac cath History of heart valve replacement AORTIC VALVE REPLACEMENT [facility] Family History Mother Family history of diabetes mellitus Social History Smoking Status: Former smoker Tobacco Type: Cigarettes Second Hand Exposure: No; Hx Alcohol Use: Yes Hx Substance Use: No Preferred Language: Italian Communication Ability: Effective Visual Impairment: No Limitations 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 Semiautomatic Required: No Beliefs That Will Affect Care: None Current Living Situation: Alone Feels Safe at Home: Yes Safety Concerns: Feels Safe At This Time Assistive Devices: Glasses Physical Exam Constitutional: + thin Eyes: PERRL, conjunctivae normal, anicteric sclerae ENMT: external ear and nose normal, oropharynx normal Neck: trachea midline, no thyromegaly Respiratory: normal respiratory effort, lungs clear to auscultation Cardiovascular: Rate/Rhythm: regular rate and regular rhythm Gastrointestinal (Abdomen): Inspection/Auscultation: abdomen normal to inspection Percussion/Palpation: abdomen soft; abdomen nontender Musculoskeletal: some pain on palpation right shoulder/upper back, right side of neck Skin: no rashes, warm and dry Results & Data Results & Data Vital Signs (Past 12 Hours) Vital Signs Temp Pulse Pulse Resp BP BP Pulse Ox 05/18/23 21:00 77 18 131/63 100 05/18/23 19:00 82 18 147/68 H 98 05/18/23 18:45 84 23 98 05/18/23 18:45 171/65 H 05/18/23 18:44 85 05/18/23 16:08 36.6 C 85 20 134/55 L 97 O2 Del Method 05/18/23 21:00 Room Air 05/18/23 19:00 Room Air 05/18/23 18:45 05/18/23 18:45 05/18/23 18:44 05/18/23 16:08 Supervising Physician Co-Signing Physician Notes Attending addendum: I have physically seen this patient, have supervised the medical residents activities, and agree with the H&P unless as otherwise noted. Assessment and Plan: Intractable back pain- Status post morphine 2 mg IV ED from the ED with some improvement Adding lidocaine patch and as needed Tylenol as noted Consult PT/OT May be some referred pain from UTI Urinary tract infection- Follow urine culture and sensitivity Ceftriaxone 2 g IV given in the ED Continue ceftriaxone 2 g IV daily Mechanical AVR/paroxysmal atrial fibrillation- The patient will be admitted to telemetry for serial cardiac enzymes, serial EKG's, cardiac rhythm monitoring Continue warfarin 3 mg daily, INR therapeutic at 2.5 Troponin 14.9, follow serially Resident Activity Tracking Resident Involvement: Resident Care Provided Care Provided: Adult Hospital Medicine
[2023-05-18] MEDS ORDERED: SODIUM CHLORIDE 0.9% 1,000 ML IV SCH (21:30)
[2023-05-18] MEDS ORDERED: ACETAMINOPHEN 325 MG TAB PO PRN (22:51)
[2023-05-18] MEDS ORDERED: MELATONIN 3 MG TAB PO PRN (22:51)
[2023-05-18 23:22] LABS: Troponin I High Sensitivity 17.4 pg/ml (0-14)
[2023-05-19 04:54] LABS: Hematocrit (blood only) 27.9 % (37.0-47.0); Hemoglobin 9.3 g/dl (12.0-16.0); Mean Corpuscular Hemoglobin 31.5 pg (25.0-34.0); Mean Corpuscular Hgb Conc 33.3 g/dL (32.0-36.0); Mean Corpuscular Volume 94.6 fL (80.0-100.0); Mean Platelet Volume 10.5 fL (9.4-12.4); Platelet Count 277 K/uL (130-400); RDW Coefficient of Variation 11.9 % (11.5-14.5); RDW Standard Deviation 41.2 fL (36.4-46.3); Red Blood Count 2.95 M/uL (4.20-5.40); White Blood Count 14.21 K/ul (4.8-10.8)
[2023-05-19 04:58] LABS: BUN Creatinine Ratio 14.4 (10-20); Calcium 8.8 mg/dl (8.6-10.3); Creatinine Clr Calc Pharmacy 36.1 ml/min; Est GFR (African American) 64.8 ml/min; Est GFR (Non-African American) 55.9 ml/min; Potassium 3.7 mmol/L (3.5-5.1)
--- NOTE | 2023-05-19 05:05 | Billing Data ---
Date of Service May 19, 2023 Coding Level of Care Code 63358 INT INP/OBS CARE
[2023-05-19 05:10] LABS: INR 2.6 (0.9-1.1); Prothrombin Time 26.9 Seconds (9.0-12.0)
--- NOTE | 2023-05-19 08:03 | Hospitalist Progress Note ---
Date of Service May 19, 2023 Assessment & Plan (1) Intractable back pain: Plan: 77yo Female with PMH mechanical heart valve on warfarin, pAfib, hx. Billroth II procedure, chronic back pain with cervical spinal stenosis here for worsened upper back pain and concern UTI. Back Pain, resolved, pt states has history of spinal stenosis -In the setting of 3 days limited mobility and possible UTI -multimodal pain approach -ordered PT/OT -ordered lidocaine patch, PRN tylenol avoid NSAIDS with h/o PUD PT relates that the majority of her complaints revolve around abdominal pain and bowel habit changes, has had Bilroth surgery in past pending CT abdomen and pelvis (2) Urinary tract infection: Plan: UTI -UA concerning for infection-WBC 14.19, CRP 28.99 -Urine culture pending -received ceftriaxone in ED, will continue ceftriaxone at this time (3) History of mechanical aortic valve replacement: Plan: Mechanical heart valve -continue warfarin -trend PT/INR -holding bumex at this time given concern dehydration HLD -continue rosuvastatin Elevated troponin -trp 14.9, 17.4 (4) Depression: Plan: Anxiety/Depression -continue venlafaxine Plan Code Status: Full DVT PPX: warfarin PT/OT: ordered Admission and Anticipated Discharge Date Admission Date: May 18, 2023 Subjective pt hsa improvement in back pain except with movement now relates some lower abdominal pain, and worry of constipatrion over last few weeks with change in bowel habits to mostly liquid Physical Exam Physical Exam: pt with no reproducible pain to spine or neck no radicular weakness abd is soft wtih LLQ tenderness no rebound no guarding cardiac exam is regular with metallic click Results & Data Results & Data Vital Signs (Past 12 Hours) Vital Signs Pulse Pulse Resp BP Pulse Ox Pulse Ox O2 Del Method 05/19/23 07:41 76 18 127/58 L 95 Room Air 05/19/23 07:06 71 05/19/23 04:00 78 16 133/64 96 Room Air 05/18/23 23:59 76 18 108/56 L 94 Room Air 05/18/23 23:59 94 05/18/23 23:00 81 05/18/23 21:00 77 18 131/63 100 Room Air O2 Del Method 05/19/23 07:41 05/19/23 07:06 05/19/23 04:00 05/18/23 23:59 01/05/24 23:59 Room Air 05/18/23 23:00 05/18/23 21:00 Laboratory Results reviewed cbc reviewed chemistry reviewed INR PG Care Time/CCT Total # of Minutes Spent Total Time Spent with Patient: Total time spent is greater than 50% in coordination of care (as documented) at patient's floor/unit and/or counseling patient: Coding Level of Care Code 80145 SUB INP/OBS CARE 2/35MIN Diagnoses Intractable back pain M54.9 Urinary tract infection N39.0 History of mechanical aortic valve replacement Z95.2 Depression F32.9
[2023-05-19] MEDS ORDERED: MoRPHine SULFATE 4 MG/ML 1 ML CARP\\VIAL IV PRN (08:04)
[2023-05-19] MEDS ORDERED: oxyCODONE HCL IR 5 MG TAB (IMMEDIATE RELEASE) PO PRN (08:04)
[2023-05-19] MEDS ORDERED: MoRPHine SULFATE 2 MG/ML CARP IV PRN (08:04)
[2023-05-19] MEDS: VENLAFAXINE HCL XR 150 MG CAPXR PO SCH (09:38)
[2023-05-19] MEDS: ACETAMINOPHEN 500 MG TAB PO SCH ×3 (09:38→20:35)
--- OUTSIDE RECORDS SUMMARY | 2023-05-19 09:47 | External Medical Summary | Continuity of Care Document ---
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 Name Role Phone FaridehsheilaNichole Daniel Primary Care Physician [phone] Encounter [id number] Date(s): 02/22/23 - 02/22/23 [facility] [id number], [address] [place] [address] [phone] Encounter Diagnosis Aneurysm, ascending aorta(Discharge Diagnosis) - 02/22/23 Right bundle branch block(Discharge Diagnosis) - 02/22/23 Hypertension(Discharge Diagnosis) - 02/22/23 Chronic right-sided CHF (congestive heart failure)(Discharge Diagnosis) - 02/22/23 Aneurysm of the ascending aorta, without rupture(Final) - Chronic right heart failure(Final) - Essential (primary) hypertension(Final) - Other right bundle-branch block(Final) - Discharge Disposition: Home or Self Care Attending Physician: DO Rodriguez Jason D Allergies, Adverse Reactions, Alerts Substance Reaction Severity Status heparin has antibody Active ferrous sulfate upset stomach Active Adhesive bandage rash Active Assessment and Plan Extracted from: Title:Cardiology Office Visit Note Author:DO Rodriguez Jason D Date:02/22/23 1.Aneurysm, ascending aort a 3.Chronic right-sided CHF (congestive heart failure) 4.Hypertension 5.Right bundle branch block From my standpoint she is doing well. We know from her last echocardiogram in 2020 her valve is functioning normally. She has a soft systolic ejection murmur and across it without any appreciable diastolic murmurs. Additionally her LV function remains preserved. She remains on warfarin with a goal INR of 2-3. She is not on aspirin due to her previous Billroth II gastric bypass surgery. She does have antibiotics to take prior to the dentist. She denies any fevers or chills. Her blood pressure is reasonably well controlled. I did recommend a CBC and a complete metabolic profile today just to make sure she is not more anemic such that she should return to the cancer center. She is known to have a right bundle branch block with left anterior fascicular block but denies any signs or symptoms of heart block. She will need an echocardiogram in a year. She will see Maritza in 6 months I will see her in a year and at that point her last echo would be 3 years prior. Immunizations Given and Recorded Vaccine Date Status Refusal Reason influenza virus vaccine, inactivated 02/22/23 Give n influenza virus vaccine, inactivated 02/11/22 Larry rded influenza virus vaccine, inactivated 03/02/21 Larry rded influenza virus vaccine, inactivated 02/24/19 Give n influenza virus vaccine, inactivated 03/13/18 Give n influenza virus vaccine, inactivated 02/06/17 Give n influenza virus vaccine, inactivated 01/20/16 Give n influenza virus vaccine, inactivated 03/05/15 Give n influenza virus vaccine, inactivated 02/13/14 Give n influenza virus vaccine, inactivated 02/19/13 Give n influenza virus vaccine, inactivated 01/26/12 Give n influenza virus vaccine, inactivated 05/31/11 Give n influenza virus vaccine, inactivated 02/24/10 Larry rded influenza virus vaccine, inactivated 03/16/09 Larry rded influenza virus vaccine, inactivated 03/27/08 Larry rded tetanus/diphtheria/pertuss, acel (Tdap) 07/13/22 G iven tetanus/diphtheria/pertuss, acel (Tdap) 03/22/10 R ecorded pneumococcal 23-valent vaccine 1 05/12/22 Given pneumococcal 23-valent vaccine 05/06/09 Recorded SARS-CoV-2 (COVID-19) mRNA BNT-162b2 vax 09/09/20 Recorded SARS-CoV-2 (COVID-19) mRNA BNT-162b2 vax 08/19/20 Recorded zoster vaccine live 01/08/15 Recorded pneumococcal 13-valent vaccine 12/15/14 Given 1Result Comment: Arcelia Smith Ma Medications albuterol CFC free 90 mcg/inh MDI Start: 11/11/18 14:07:14 EDT, 2 puff, inhaled, qid, Disp# 3 each, Refills: 3, PRN: as needed for wheezing, Pharmacy: [facility] Start Date: 11/11/18 Stop Date: 11/06/19 Status: Ordered bumetanide 1 mg oral tablet Start: 04/10/22 12:04:00 EST, See Instructions, Disp# 180 tab, Refills: 3, TAKE 1 TABLET TWICE A DAY, Pharmacy: [facility] Start Date: 04/10/22 Status: Ordered CBD oil Start: 11/10/20 16:55:00 EDT, CBD oil Start Date: 11/10/20 Status: Ordered diphenhydrAMINE 25 mg oral tablet Start: 12/15/14 10:38:00, See Instructions, takes as needed for allergies Start Date: 12/15/14 Status: Ordered folic acid 0.4 mg oral tablet Start: 02/24/22 12:29:00 EDT, 1 tab, PO, Daily Start Date: 02/24/22 Status: Ordered Klor-Con M20 oral tablet, extended release Start: 04/12/22 13:55:00 EST, See Instructions, Disp# 90 tab, Refills: 3, TAKE 1 TABLET DAILY, Pharmacy: [facility] Start Date: 04/12/22 Status: Ordered LORazepam 1 mg oral tablet Start: 06/09/21 14:15:00 EST, 1 tab, PO, qhs, Disp# 90 tab, Refills: 1, Pharmacy: [facility] Start Date: 06/09/21 Stop Date: 12/06/21 Status: Ordered simvastatin 20 mg oral tablet Start: 01/11/22 14:19:00 EDT, See Instructions, Disp# 90 tab, Refills: 3, TAKE 1 TABLET AT BEDTIME,Pharmacy: [facility] Start Date: 01/11/22 Status: Ordered traMADol 50 mg oral tablet Start: 11/24/22 17:19:00 EDT, 1 tab, PO, q6h, Disp# 56 tab, PRN: as needed for pain, Pharmacy: [facility]/pharmacy #[id number] Start Date: 11/24/22 Status: Ordered venlafaxine 150 mg oral capsule, extended release Start: 07/10/22 13:46:00 EST, See Instructions, Disp# 180 cap, Refills: 3, TAKE 1 CAPSULE TWICE A DAY, Pharmacy: [facility] Start Date: 07/10/22 Status: Ordered Ventolin HFA 90 mcg/inh inhalation aerosol Start: 01/20/20 8:37:00 EDT, 2 puff, inhaled, qid, Disp# 108 g, Refills: 3, PRN: as needed for wheezing, Pharmacy: [facility], 153.4, cm, 11/26/19 15:14:00 EDT, Height, 59.5, kg, 01/27/19 13:21:00 EDT, Weight Start Date: 01/20/20 Status: Ordered Vitamin B12 Start: 02/26/18 11:38:00 EDT, 1,200 mcg =, SL, Daily Start Date: 02/26/18 Status: Ordered Vitamin C 1000 mg oral tablet Start: 05/31/11 9:40:00 EST, 500 mg =, PO, Daily Start Date: 05/31/11 Status: Ordered Vitamin D3 400 intl units oral capsule Start: 06/16/15 12:10:00, 1 cap, PO, bid, Disp# 180 cap, Refills: 0, [facility] Start Date: 06/16/15 Stop Date: 09/14/15 Status: Ordered warfarin 1 mg oral tablet Start: 10/20/22 12:28:00 EDT, See Instructions, Disp# 180 tab, Refills: 2, TAKE 1.5 - 2 TABLETS BY MOUTH DAILY DIRECTED BY [facility]TICOAGULATION CL[facility]IC, Pharmacy: [facility] Start Date: 10/20/22 Status: Ordered Problem List Condition Confirmation Course Effective Dates Status H ealth Status Informant Aneurysm, ascending aorta Confirmed Active Anticoagulant effect Confirmed Active Aortic valve replacement and replacement of ascending aorta Confirmed 05/14/03 Active Backache Confirmed Active Chronic right-sided CHF (congestive heart failure) Confirmed Active Depression Confirmed Active Deviation of international normalized ratio from target range Confirmed Active Dyslipidemia Confirmed Active Sleep disturbance Confirmed Active H/O: hysterectomy Confirmed Active HEARING LOSS Confirmed Active S/P AVR (aortic valve replacement) Confirmed Active History of Billroth 2 anastomosis Confirmed Active History of mechanical aortic valve replacement Confirmed Active Hypertension Confirmed Active INR raised Confirmed Active Iron deficiency anemia Confirmed Active Leukopenia Confirmed Active LUMBAGO Confirmed Active Asthma Confirmed Active Neck pain Confirmed Active Peptic ulcer Confirmed Active Right bundle branch block Confirmed Active Sciatica Confirmed Active Spinal stenosis Confirmed 01/20/13 Active Spinal stenosis of lumbar region Confirmed Active Tick bites Confirmed Active Diagnosis Diagnosis Type Effective Dates Health Status Clinical Service Informant Hypertension Discharge Diagnosis 02/22/23 Chronic right-sided CHF (congestive heart failure) Discharge Diagnosis 02/22/23 Right bundle branch block Discharge Diagnosis 02/22/23 Aneurysm, ascending aorta Discharge Diagnosis 02/22/23 Procedures Procedure Date Related Diagnosis Body Site Status Mammogram - screening 1 12/19/18 C ompleted Colonoscopy 2 02/04/18 Completed Mammogram - screening 3 12/18/17 C ompleted Upper GI endoscopy 4 08/10/17 Comp leted Mammogram 5 08/23/16 Completed Mammogram - screening 6 08/16/16 C ompleted X-ray of lumbar spine 7 03/13/16 C ompleted X-ray of lumbar spine 8 03/13/16 C ompleted Mammogram 9 06/03/15 Completed Blood transfusion 10, 11 02/17/15 Completed Echocardiogram 12/14/14 Completed Root canal of tooth 11/18/[address] of head 12 10/21/14 Completed XRAY thoracic spine 13 10/21/[address] of abdomen and pelvis 14 09/28/14 Completed MRI of lumbar spine 15 09/28/14 Co mpleted CAT scan 16 09/27/[address] of lumbar spine 17 09/27/14 Com pleted Procedure on back 18 03/17/14 Comp leted Extraction of single tooth 19 01/12/14 Completed Colonosocpy 2010 Completed aortic valve replacement Completed B salpingo oopharectomy C ompleted Cataract surgery Complete d Hysterectomy Completed Procedure 21 Completed 1IMPRESSION: No mammographic evidence of malignancy. 1 year screening is recommended 2IMPRESSION The terminal ileum appeared normal The entire eamined colon appeared normal 3IMPRESSION The possible areas ofarchitectural distortionin the lateral right breast and left breast along the posterior nipple line onn the CC view need additional imaging evaluation 4Impression: Z-line regular, 37 cm from the incisors Normal esophagus Nati-en-Y gastrojejunostomy with gastojejunal anastomosis characterized by healthy appearing mucosa. Biopsied. 5unilat left dx- Cat 2- benign. 6Impression: Left brast focal asymmetry, for which additional imaging evaluation is recommended. Thepatient will be called to schedule. 7Impression: There is no acute bony abnormality identified involving the lumbosacral spine. Osteopenia with lumbosacral spondylosis as detailed above. This is similar in appearance to prior studies. 8[facility] Impression: 1. There no acute bony abnormality identified involving the lumbosacral spine 2. Osteopenia with lumbosacral spondylosis as detailed above. This is similar in appearance to prior studies 9CAT 1- negative. 1 year f/u is recommended 10Sept2014 11pt found the date, it was on 02/17/2105 12No acute intracranial findings 13Moderate multilevel degenerative disc disease of the thoracic spine No acute thoracic spine fracture 14Conclusion: Post-surgical changes. Probable hepatic cysts. No evidence for urinary calculi or obstruction No evidence of bowel obstruction or inflammatory change. There is some opaque material within the appendix which otherwise appears normal. 15impression: multilevel spondylic changes. Grade 1 spondylolisthesis of L2-L3 and L4-L5. Severe spinal stenosis at the L4-L5 level. Mild spinal stenosis at the L2-L3 and L3-L4 levels. 16Ct scan of the thoracic spine Conclusion: degenerative changes. Otherwise, negative 17conclusion: Changes of degenerative disc disease and facet arthropathy. There is multilevel disc bluging present, most pronounced at L3-L4. Grade 1 spondylolisthesis of L4-L5. An element of acquired spinal stenosis is suggested at L3-L4 and L4-L5 No evidence for epidural abscess. 18cervical medial branch block 19two teeth removed 20[facility]. [facility] tooth pulled Results Laboratory List Name Date Complete Blood Count (CBC) 02/22/23 Comprehensive Metabolic Panel (COMP META B PANEL) 02/22/23 Most recent to oldest [Reference Range]: 1 eGFR CKD-EPI [>60 mL/min/1.73 m2] 45 mL/ min/1.73 m2 1 *LOW* (02/22/23 2:10 PM) Estimated CrCl 27.94 mL/min (02/22/23 2:42 PM) MPV [9.0-12.2 fL] 9.8 fL 2 (02/22/23 2:10 PM) RDW [11.5-14.2 %] 13.2 % (02/22/23 2:10 PM) Anion Gap [5-14 mmol/L] 7 mmol/L (02/22/23 2:10 PM) Alb [3.5-5.0 g/dL] 4.3 g/dL (02/22/23 2:10 PM) Alk Phos [38-126 unit/L] 103 unit/L (02/22/23 2:10 PM) ALT [<35 unit/L] 25 unit/L (02/22/23 2:10 PM) AST [15-46 unit/L] 38 unit/L (02/22/23 2:10 PM) BUN [7-20 mg/dL] 18 mg/dL (02/22/23 2:10 PM) Ca [8.4-10.2 mg/dL] 9.3 mg/dL (02/22/23 2:10 PM) Cl- [96-107 mmol/L] 108 mmol/L *HI* (02/22/23 2:10 PM) HCO3 [22-30 mmol/L] 26 mmol/L (02/22/23 2:10 PM) Cret [0.60-1.00 mg/dL] 1.23 mg/dL *HI* (02/22/23 2:10 PM) Glu [74-106 mg/dL] 94 mg/dL (02/22/23 2:10 PM) Hct [35-44 %] 35.8 % (02/22/23 2:10 PM) Hgb [11.7-15.0 g/dL] 11.3 g/dL *LOW* (02/22/23 2:10 PM) K [3.5-5.1 mmol/L] 3.8 mmol/L (02/22/23 2:10 PM) MCH [28-33 pg] 29.7 pg (02/22/23 2:10 PM) MCHC [32-36 g/dL] 31.6 g/dL *LOW* (02/22/23 2:10 PM) MCV [81-96 fL] 94.0 fL (02/22/23 2:10 PM) Na [137-145 mmol/L] 141 mmol/L (02/22/23 2:10 PM) Plts [150-350 K/uL] 301 K/uL (02/22/23 2:10 PM) RBC [3.90-5.00 M/uL] 3.81 M/uL *LOW* (02/22/23 2:10 PM) T Bili [0.2-1.3 mg/dL] 0.1 mg/dL *LOW* (02/22/23 2:10 PM) Prot [6.3-8.2 g/dL] 7.4 g/dL (02/22/23 2:10 PM) WBC [4.0-10.4 K/uL] 6.72 K/uL (02/22/23 2:10 PM) 1Result Comment: Testing Performed By: Dept of Pathology [facility] Darryl Bearden, [address] [facility] [place] [address] 2Result Comment: Testing Performed By: Dept of Pathology [facility] Monisha, [address] [facility] [place] [address] Social History Social History Type Response Smoking Status Never smoked cigaret elizabet Sex Female Cardiology Outpatient Note * DO Rodriguez Jason D: PERFORM Event Display: Cardiology Outpt Note Authored Date: Primary Care Provider RUTH ANN Herr Shari A Chief Complaint 6 month f/u [facility] AVR History of Present Illness she is doing okay from my standpoint. She has no chest discomfort or chest pressure. She denies any shortness of breath. She can walk from 1 room to the next without significant dyspnea. She walks in about half of the grocery store pushing the cart and feels okay. She has no lightheadedness or dizziness. She has any presyncope or syncope. She denies any bleeding or bruising on anticoagulation. Her warfarin is followed by her she is Coumadin clinic. She notes in the past even though she is anemic with significant iron deficiency she never feels better after iron infusions and is stopped going to the cancer center. She is unaware of any palpitations or fluttering or feeling her heart racing. Review of Systems PAST MEDICAL HISTORY: 1. Status post aortic valve replacement in [address] Arash mechanical prosthesis (20 mm valve?, more likely a 21-mm valve) in a root and ascending aortic conduit secondary to severe aortic stenosis, superimposed on a congenital bicuspid aortic valve and an ascending aortic aneurysm. 2. Heparin induced thrombocytopenia. 3. 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 4. History of normal coronary arteries by cardiac catheterization in 2003. 5. History of a Billroth II gastric surgery in 1985. 6. Iron deficiency and B12 deficiency with chronic anemia. 7. Hyperlipidemia. 8. Echocardiogram 12/2020 with normal EF in the range of 57% with the basal and inferior lateral and entire inferior wall and inferior septum, thin and akinetic; normal RV size and function; well seated St. Arash mechanical aortic valve replacement with a dimentional index of 0.36 and a mean gradient of 21 mmHg unchanged from her prior of 2019. 9. Spinal stenosis. 10. 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 SOCIAL HISTORY: She denies any tobacco. She was an consolidation accountant. She is . She has 2 children with significant help from her daughter. She stopped smoking at the age of 40 having smoked less than a pack per day for 24 years. Physical Exam PHYSICAL EXAMINATION: She is awake, alert, oriented x3.. HEENT: Jugular venous pressure appeared normal. Sclerae was anicteric. Her hearing is normal. Lungs clear auscultation bilaterally, no rales, rhonchi, or wheezing. Heart: Regular rate and rhythm. There is a crisp click of her aortic valve prosthesis. There is a 2/6 systolic ejection murmur which is early peaking. Extremities: No clubbing, cyanosis, or edema. Skin, no ecchymosis or bruising. Assessment/Plan 1.Aneurysm, ascending aorta 3.Chronic right-sided CHF (congestive heart failure) 4.Hypertension 5.Right bundle branch block From my standpoint she is doing well. We know from her last echocardiogram in 2020 her valve is functioning normally. She has a soft systolic ejection murmur and across it without any appreciablediastolic murmurs. Additionally her LV function remains preserved. She remains on warfarin with a goal INR of 2-3.She is not on aspirin due to her previous Billroth II gastric bypass surgery. She does have antibiotics to take prior to the dentist. She denies any fevers or chills. Her blood pressure is reasonably well controlled. I did recommend a CBC and a complete metabolic profile today just to make sure she is not more anemic such that she should return to the cancer center. She is known to have a right bundle branch block with left anterior fascicular block but denies anysigns or symptoms of heart block. She will need an echocardiogram in a year. She will see Maritza in 6 months I will see her in a year and at that point her last echo would be 3 years prior. Problem List/Past Medical History Ongoing Aneurysm, ascending aorta Anticoagulant effect Aortic valve replacement and replacement of ascending aorta Asthma Backache Chronic right-sided CHF (congestive heart failure) Depression Deviation of international normalized ratio from target range Dyslipidemia H/O: hysterectomy HEARING LOSS History of Billroth 2 anastomosis History of mechanical aortic valve replacement Hypertension INR raised Iron deficiency anemia Leukopenia LUMBAGO Neck pain Peptic ulcer Right bundle branch block S/P AVR (aortic valve replacement) Sciatica Sleep disturbance Spinal stenosis Spinal stenosis of lumbar region Tick bites Historical Acute urinary tract infection Altered mental status Urinary tract infectious disease Procedure/Surgical History Mammogram - screening (12/19/2018)Colonoscopy (02/04/2018)Mammogram - screening (12/18/2017)Upper GI endoscopy (08/10/2017)Mammogram (08/23/2016)Mammogram - screening (08/16/2016)X-ray of lumbar spine (03/13/2016)X-ray of lumbar spine (03/13/2016)Mammogram (06/03/2015)B lood transfusion (02/17/2015)Echocardiogram (12/14/2014)Root canal of tooth (11/18/2014)CTof head (10/21/2014)XRAY thoracic spine (10/21/2014)MRI of lumbar spine (09/28/2014)CT of abdomen and pelvis (09/28/2014)CAT scan (09/27/2014)CT of lumbar spine (09/27/2014)Procedure on back (03/17/2014)Extraction of single tooth (01/12/2014)Colonosocpy (2010)ProcedureB salpingo oopharectomyaortic valve replacementCataract surgeryHysterectomy Medications albuterol(Ventolin HFA 90 mcg/inh inhalation aerosol), 180 mcg= 2 puff, inhaled, qid, PRN, 3 refills albuterol(albuterol CFC free 90 mcg/inh MDI), 2 puff, inhaled, qid, PRN, 3 refills ascorbic acid(Vitamin C 1000 mg oral tablet), 500 mg, PO, Daily bumetanide(bumetanide 1 mg oral tablet), See Instructions cholecalciferol(Vitamin D3 400 intl units oral capsule), 400 Int_Unit= 1 cap, PO, bid cyanocobalamin(Vitamin B12), 1200 mcg, SL, Daily diphenhydrAMINE(diphenhydrAMINE 25 mg oral tablet), See Instructions folic acid(folic acid 0.4 mg oral tablet), 0.4 mg= 1 tab, PO, Daily influenza virus vaccine, inactivated(influenza virus vaccine, inactivated HIGH- DOSE preservative-free QUADravalent IM susp), 0.7 mL, IM, ONCE LORazepam(LORazepam 1 mg oral tablet), 1 mg= 1 tab, PO, qhs, 1 refills potassium chloride(Klor-Con M20 oral tablet, extended release), See Instructions, 3 refills simvastatin(simvastatin 20 mg oral tablet), See Instructions traMADol(traMADol 50 mg oral tablet), 50 mg= 1 tab, PO, q6h, PRN unlisted medication(CBD oil) venlafaxine(venlafaxine 150 mg oral capsule, extended release), See Instructions warfarin(warfarin 1 mg oral tablet), See Instructions, 2 refills Allergies Adhesive bandagerash ferrous sulfateupset stomach heparinhas antibody Social History Smoking Status Never smoked cigarettes Tobacco - Denies Tobacco Use Family History Cancer: Sister. Cataract: Father. Diabetes: Mother and Father. Heart disease: Father. Heart murmur: Mother. Health Status Family Member(s) Electronic Signature on File CC: RUTH ANN Dutton [address] [place] [address] [address] [facility] [id number] Electronically Reviewed/Signed by: Vipul Rodriguez DO Author Signature Dt/Tm:02/22/2023 01:50 PM Vba Programmerneurocritical care physician [facility] [place] [place] [address] JCAROLIN Patient Care team information Care Team Personnel Name: George Wiggins Todd Position: Pharmacist Schedule II Member Role: Pharmacy - Lifetime Address: Address: [address] [place] [id number] Name: George Yu Francis Position: Pharmacist Schedule II Member Role: Pharmacy - Lifetime Address: Address: [facility] [address] [place] [address] Name: George Palmer Paul T Position: Pharmacist Schedule II Member Role: Pharmacy - Lifetime Address: Address: [facility] [address] [place] [address] [place] Name: RUTH ANN Herr Shari A Position: Nurse Pract - Family Med Member Role: Primary Care Provider Address: Address: [address] [place] [id number] [place] Name: George Raygoza Alexander S Position: Pharmacist Member Role: Pharmacy - Lifetime Address: Address: [facility] [address] [place] [address] [place] Care Team Related Persons Name: BEN GODWIN III Address: home [address] [place], [place] [phone] Name: JACQUIE COHN Address: home [address] [place], [place] [phone]
[2023-05-19] MEDS ORDERED: OPTIRAY 320 500ml IV ONE (13:34)
--- NOTE | 2023-05-19 14:29 | CT Scan Report ---
CT OF THE ABDOMEN AND PELVIS WITH CONTRAST CLINICAL HISTORY: Lower abdominal pain. COMPARISON STUDY: CT of the abdomen and pelvis September 28, 2014. TECHNIQUE: Following IV administration of 94 mL of Optiray, axial images of the abdomen and pelvis we re obtained from the lung bases to the proximal femurs. Images were reviewed in the axial, sagittal, and coronal planes. IV contrast was administered without complication. Automated exposure control wa s utilized for the study. A dose lowering technique was utilized adhering to the principles of ALARA . Oral contrast was administered. CT DOSE: 420.69 mGy.cm FINDINGS: Prosthetic aortic valve is noted as well as median sternotomy wires. There is moderate card iomegaly. There are trace bilateral pleural effusions. Subpleural opacities favor atelectasis. No pne umatosis, free air or portal venous gas is present. Multiple suspected hepatic cysts measure up to 5. 3 cm. A few subcentimeter hepatic lesions are too small to characterize. There is no biliary or pancr eatic ductal dilatation. The gallbladder is mildly distended. However, there is no pericholecystic in filtration. Spleen, adrenal glands and kidneys are unremarkable with exception of a few suspected van al cyst. There is no hydronephrosis. The appendix is mildly dilated, measuring 8 mm in caliber. Howev er, there is oral contrast and gas within the appendix. There may be trace fluid adjacent to the appe ndiceal tip. No free air or abscess is present. The findings do not strongly suggest acute appendicit is. Major vasculature is patent. There is no lymphadenopathy. There are no fluid collections. Mild co mpression fracture of the superior endplate of L3 is new since prior CT. This is probably subacute to chronic. No acute fractures are identified. Prior Billroth surgery is noted. No evidence for a bowel obstruction. IMPRESSION: 1. Status post Billroth procedure. No evidence for a bowel obstruction. 2. Mildly dilated appendix. Trace fluid adjacent to the appendiceal tip. However, appendix filled wit h oral contrast. The findings do not strongly suggest acute appendicitis however close clinical follo w-up is recommended. 3. Mildly distended gallbladder. No pericholecystic infiltration to strongly suggest acute cholecysti tis. 4. Multiple hepatic cysts. 5. Trace bilateral pleural effusions. Subpleural opacities suggestive of atelectasis. ACT 112: Negative or not required by law. Electronically signed by: Justin Diana M.D. 05/19/2023 2:27 PM
[2023-05-19] MEDS ORDERED: WARFARIN SOD 3 MG TAB PO SCH (16:00)
[2023-05-19] MEDS: traMADol HCL 50 MG TABLET PO PRN (19:52)
[2023-05-19] MEDS ORDERED: cefTRIAXone SODIUM 1,000 MG in DEXTROSE 5 % MINI-B 50 ML IV SCH (20:00)
[2023-05-19] MEDS ORDERED: cefTRIAXone SODIUM 2,000 MG in DEXTROSE 5 % MINI-B 50 ML IV SCH (20:00)
[2023-05-19] MEDS ORDERED: SIMVASTATIN 20 MG TAB PO SCH (21:00)
[2023-05-20] MEDS: traMADol HCL 50 MG TABLET PO PRN ×3 (03:11→12:33)
[2023-05-20 07:36] LABS: INR 2.2 (0.9-1.1); Prothrombin Time 23.1 Seconds (9.0-12.0)
[2023-05-20] MEDS: VENLAFAXINE HCL XR 150 MG CAPXR PO SCH (08:25)
[2023-05-20] MEDS: ACETAMINOPHEN 500 MG TAB PO SCH (08:25)
--- NOTE | 2023-05-20 16:08 | Discharge Summary ---
Date of Service May 20, 2023 Admission HPI Per Admitting Provider 77yo Female with PMH mechanical heart valve on warfarin, pAfib, hx. Billroth II procedure, chronic back pain with cervical spinal stenosis here for worsened upper back pain and concern UTI. Patient states she's been having upper back pain in her neck and left shoulder over the last 3 days, felt like a bruise not a stabbing pain, did not get better with her home tramadol. Patient able to shift and point to area of pain on her back, states it is a 10/10 pain. Patient's daughter states patient has been sitting in her chair not moving or eating for 3 days due to the pain, has noted several days ago patient complained of burning with urination that improved after patient ate cranberries. At this time patient denies any fever SOB nausea vomiting abd pain, urinary difficulty frequency or burning, changes in bowel movement. Patient states she gets occasional numbness in both legs and her left arm. At baseline patient walks without assistance, she lives alone with 3 cats, daughter who is POA lives 30min away. Patient at baseline has poor appetite and does not walk much. Patient insists she stays hydrated with 3 quarts iced tea and coffee. Principal Diagnosis back pain constipation Discharge Exam pt is back to her baseline daughter is at bedside and agrees to going home will work on bowel regimen Discharge Data Allergies Allergy/AdvReac Type Severity Reaction Status Date / Time heparin Allergy Severe developed Verified 05/18/23 20:19 antibody to heparin ferrous sulfate AdvReac Intermediate Gastrointestinal Verified 05/18/23 20:19 Upset adhesive tape AdvReac Mild skin Verified 05/18/23 20:19 sensitive Consultations 05/18/23 20:51 ED Decision to Admit Stat Ordered Studies 05/19/23 10:55 CT Abd and Pelvis [CT abd pelvis oral and IV con] Routine Hospital Course (1) Intractable back pain: 77yo Female with PMH mechanical heart valve on warfarin, pAfib, hx. Billroth II procedure, chronic back pain with cervical spinal stenosis here for worsened upper back pain and concern UTI. Back Pain, resolved, pt states has history of spinal stenosis -In the setting of 3 days limited mobility and possible UTI compete resolved PT relates that the majority of her complaints revolve around abdominal pain and bowel habit changes, has had Bilroth surgery in past CT abdomen and pelvis 01/06/24 Status post Billroth procedure. No evidence for a bowel obstruction. Mildly dilated appendix. Trace fluid adjacent to the appendiceal tip. However, appendix filled with oral contrast. The findings do not strongly suggest acute appendicitis however close clinical follow-up is recommended. Mildly distended gallbladder. No pericholecystic infiltration to strongly suggest acute cholecystitis. Multiple hepatic cysts. Trace bilateral pleural effusions. Subpleural opacities suggestive of atelec tasis. (2) Urinary tract infection: UTI -UA concerning for infection-WBC 14.19, CRP 28.99 -Urine culture negative for infection (3) History of mechanical aortic valve replacement: Mechanical heart valve -continue warfarin HLD -continue rosuvastatin Elevated troponin -trp 14.9, 17.4, demand ischemia not ACS (4) Depression: Anxiety/Depression -continue venlafaxine Plan Code Status: Full Total Time Total Time Spent Total Time Spent (In Minutes): it required greater than 30 minutes to perform discharge process Discharge Plan Discharge Items Patient Disposition: Home - Self-Care Reason For Visit: BACK PAIN Discharge Diagnosis: Back pain neck pain constipation negative urine test for infection Activity: Resume your previous activity Non-emergency contact: Primary Care Provider Call non-emergency contact if: your symptoms worsen, your pain is not controlled and your pain is worsening Follow-up/Referrals: PCP,NO [Primary Care Provider] - Diet: Regular Addtl Attending Provider Instructions: please try to ammend your diet to have more robust and frequent bowel movements this can include adding a fiber supplement or a laxative such as miralax or senna Please follow up with your family doctor in the next week or so Pending Studies at Discharge: No Stand-Alone Forms: [facility], Smoking Cessation Medications and DC Order Prescriptions: Continued warfarin 1 mg tablet 3 mg PO QPM Rx Instructions: PER PT "DON'T ALWAYS TAKE THE FULL DOSE, IF HEART IS BEATING OKAY, MAYBE TAKE ONLY 1 MG, IF TOO FAST, MIGHT TAKE FULL 3 MG DOSE". venlafaxine [Effexor XR] 150 mg Capsule,Extended Release 24hr 150 mg PO QAM tramadol 50 mg Tablet 50 mg PO Q6H PRN (Reason: Pain) simvastatin 20 mg Tablet 20 mg PO HS diphenhydramine HCl [Benadryl] 25 mg Capsule 25 mg PO DIRECTED PRN (Reason: Sleep) lorazepam 1 mg Tablet 1 mg PO DAILY PRN (Reason: Anxiety) albuterol sulfate 90 mcg/actuation Aerosol Powdr Breath Activated 1 puff INHALATION Q6H PRN (Reason: Shortness Of Breath) ascorbic acid (vitamin C) [Vitamin C] 1,000 mg Tablet 1 g PO DAILY cyanocobalamin (vitamin B-12) [Vitamin B-12] 1,000 mcg Tablet 1,000 mcg PO DAILY folic acid 400 mcg Tablet 0.4 mg PO DAILY potassium chloride [Klor-Con M20] 20 mEq tablet,ER particles/crystals 20 meq PO DAILY bumetanide 1 mg tablet 1 mg PO DAILY cholecalciferol (vitamin D3) [Vitamin D3] 10 mcg (400 unit) Capsule 10 mcg PO DAILY Discharge Orders: Discharge Order (Routine); Ordered 05/20/23 Ordered By: Vincent Berry Admission Data Admit Date/Time: 05/18/23 21:25 Attending Provider: Vincent Berry Admit Provider: Belkis Courtney Primary Care Provider: PCP,NO Other Providers: Monty Hughes Other Interventions: Discharge Summary Assessment (RN) Last Done: 05/20/23 13:12 Coding Level of Care Code 97558 INP/OBS DISCH >30 MIN Diagnoses Intractable back pain M54.9 Urinary tract infection N39.0 History of mechanical aortic valve replacement Z95.2 Depression F32.9
--- NOTE | 2023-05-20 21:27 | Electrocardiogram Report ---
Test Reason : Blood Pressure : / mmHG Vent. Rate : 078 BPM Atrial Rate : 078 BPM P-R Int : 148 ms QRS Dur : 152 ms QT Int : 422 ms P-R-T Axes : 003 -47 055 degrees QTc Int : 481 ms Normal sinus rhythm Right bundle branch block Left anterior fascicular block Bifascicular block Lateral infarct , age undetermined Abnormal ECG When compared with ECG of 15-NOV-2019 06:51, Sinus rhythm has replaced Atrial fibrillation Vent. rate has decreased BY 62 BPM QRS duration has increased Confirmed by Lebron Kearney ([id number]) on 05/20/2023 9:27:35 PM Referred By: REFERRED SELF Confirmed By:Lebron Kearney
== END 2023-05-20 13:52 | disposition home or self-care (01) | DRG 552 ==
LOC: ED 15:56 → SUATTDRO 21:25 → EDINP 21:25 → INTOOBSV 21:25 → EDINP 05-19 12:00 → 2N 05-19 13:18